=== PATIENT | female | born 1930 | race Caucasian/White ===

== ENCOUNTER 2017-12-21 15:55 | Inpatient (IN) ==
[2017-12-21] MEDS ORDERED: NS 1,000 ML IV ONE (16:05)
--- NOTE | 2017-12-21 16:30 | Emergency Department Report ---
General Adult HPI - General Chief complaint: Fever <TammyJacinto Q - 12/22/17 06:07> Stated complaint: Fever <Rashad Munozn Q - 12/22/17 06:07> Source: patient <Rosario Ayala - 12/21/17 16:37> Mode of arrival: EMS <Rosario Ayala - 12/21/17 16:37> Limitations: no limitations <Rosario Ayala - 12/21/17 16:37> - History of Present Illness HPI narrative: Patient brought in by EMS due to weakness today. She was unable to make it from the bathroom back to her chair so her daughter helped lower her to the floor and called EMS. Pt states today she has felt more fatigued and weak. Has been chilled, but states she always has chills. No cough or SOA. She take cephalexin 500mg daily the first 5 days of every month due to frequent uti's. On arrival to ER she has temp of 101.8 and is tachycardic. <Rosario Ayala - 12/22/17 02:18> - Related Data Home Medications Medication Instructions Recorded Confirmed Acetaminophen [Acetaminophen Extra 1,000 mg PO QID 12/21/17 12/21/17 Strength] Calcium Carbonate/Vitamin D3 1 tab PO DAILY 12/21/17 12/21/17 [Calcium 600-Vit D3 800 Caplet] Furosemide [Lasix 20 mg Tab] 20 mg PO DAILY 12/21/17 12/21/17 Insulin Detemir [Levemir] 7 unit SQ AMI 12/21/17 12/21/17 Labetalol [Normodyne] 100 mg PO BID 12/21/17 12/21/17 Mv-Mn/Folic Acid/Calcium/Vit K 1 tab PO DAILY 12/21/17 12/21/17 [Women's 50 Plus Daily Formula] NIFEdipine [Nifedipine ER] 90 mg PO DAILY 12/21/17 12/21/17 cephALEXin [Cephalexin] 500 mg PO DAILY 12/21/17 12/21/17 <Jacinto Munoz Q - 12/22/17 06:07> Allergies Allergy/AdvReac Type Severity Reaction Status Date / Time No Known Drug Allergies Allergy Unknown Verified 12/21/17 16:00 <Jacinto Munoz Q - 12/22/17 06:07> Review of Systems All systems: reviewed and negative except as stated (fever, weakness, chronic pedal edema, healing sore to LLL) <Rosario Ayala L - 12/21/17 19:48> [facility] Patient Stated Medical History Cerebrovascular Accident No Meningitis No Peripheral Neuropathy Yes Seizures No Cataracts Yes Cardiac Arrhythmia No Hypertension Yes Asthma No Chronic Obstructive Pulmonary No Disease (COPD) Pneumonia No Diabetes Mellitus Type 1 Yes Gastroesophageal Reflux No Disease Hiatal Hernia No Ulcer No Hx Kidney Stones No Hx Renal Disease Yes Other Yes: frequency;ckd Anemia Yes MRSA No Shingles No Clinic Medical History (Last Updated 12/21/17 @ 18:06 by SUZETTE Sood) Edema extremities (Chronic Medical) Anemia in CKD (chronic kidney disease) (Chronic Medical) Chronic kidney disease (Chronic Medical) stage IV - baseline SCr 2.7. Sees Dr. Ramsey. Type 2 diabetes mellitus (Chronic Medical) Hypertension (Chronic Medical) <Jacinto Munoz Q - 12/22/17 06:07> Patient Stated Medical History Cerebrovascular Accident No Meningitis No Peripheral Neuropathy Yes Seizures No Cataracts Yes Cardiac Arrhythmia No Hypertension Yes Asthma No Chronic Obstructive Pulmonary No Disease (COPD) Pneumonia No Diabetes Mellitus Type 1 Yes Gastroesophageal Reflux No Disease Hiatal Hernia No Ulcer No Hx Kidney Stones No Hx Renal Disease Yes Other Yes: frequency;ckd Anemia Yes MRSA No Shingles No Clinic Medical History (Last Reviewed 04/29/17 @ 10:38 by Hui Gudino [facility]) Edema extremities (Chronic Medical) Anemia in CKD (chronic kidney disease) (Chronic Medical) Chronic kidney disease (Chronic Medical) Type 2 diabetes mellitus (Chronic Medical) Hypertension (Chronic Medical) <Rosario Ayala - 12/21/17 16:37> Surgical History: 2007 Nilson placement Rt upper arm due to fracture. 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 <[facility] 12/21/17 16:37> Physical Exam - Limitations Limitations: no limitations <[facility] 12/21/17 16:37> - General General appearance: in no apparent distress <[facility] 12/21/17 16:37> - Normal Exams: Head:: Normocephalic without trauma <[facility] 12/21/17 16:37> Eyes:: Pupils are PERRLA w/ EOMI <[facility] 12/21/17 16:37> Neck:: Full range of motion, without adenopathy <Ayala,[facility] 12/21/17 16: 37> Chest/Respirations:: Clear all tyler <[facility] 12/21/17 16:37> Cardiovascular:: Regular rate and rhythm, capillary refill <[facility] 16:37> Abdomen:: Bowel sounds positive, soft, non-tender, non-distended, no hepatosplenomegaly <[facility] 12/21/17 16:37> Lymphatic:: No lymphadenopathy <[facility] 12/21/17 16:37> Neurological:: Patient is alert, and oriented, exams w/o gross deficits < [facility] 12/21/17 16:37> Psychiatric:: Patient exhibits, appropriate attention <[facility] 16:37> - Extremities Exam Extremities exam: Present: other (3+ pitting edema knees to feet. <4mm healing wound on L lateral lower leg. She has erythema and warmth to L lower leg. Minimal erythema to RLE r/t venous stasis changes. ) <[facility] 16:37> Course Vital Signs Temperature 101.8 F H 12/21/17 15:48 Pulse Rate 107 H 12/21/17 15:48 Respiratory Rate 20 12/21/17 15:48 Blood Pressure 146/63 H 07/02/18 15:48 Pulse Oximetry 97 12/21/17 15:48 Temperature 100.8 F H 12/22/17 05:29 Pulse Rate 108 H 12/22/17 03:52 Respiratory Rate 18 12/22/17 03:52 Blood Pressure 176/69 H 12/22/17 03:52 Pulse Oximetry 94 12/22/17 03:52 <Jacinto Munoz Q - 12/22/17 06:07> Vital Signs Temperature 101.8 F H 12/21/17 15:48 Pulse Rate 107 H 12/21/17 15:48 Respiratory Rate 20 12/21/17 15:48 Blood Pressure 146/63 H 12/21/17 15:48 Pulse Oximetry 97 12/21/17 15:48 Temperature 101.8 F H 12/21/17 15:48 Pulse Rate 107 H 12/21/17 15:48 Respiratory Rate 20 12/21/17 15:48 Blood Pressure 146/63 H 12/21/17 15:48 Pulse Oximetry 97 12/21/17 15:48 <Rosario Ayala - 12/21/17 16:37> Medical Decision Making - MDM Narrative Medical decision making narrative: SIRS - temp, tachy, leukocytosis. Nl lactate. Has CKD. Had recent blood transfusion. Gets Procrit. Diff Dx to include PNA, UTI, cellulitis. Admit to hospitalist. She was given Rocephin 1gm IV and 1 L NS in ER prior to admission. <Rosario Ayala - 12/22/17 02:18> - Lab Data Result diagrams: 12/22/17 04:52 12/22/17 04:52 <Jacinto Munoz Q - 12/22/17 06:07> Lab Results 12/21/17 12/21/17 Range/Units 16:17 16:17 WBC 25.9 H* (4.5-11.0) T/MM3 RBC 3.18 L (4.00-5.20) M/MM3 Hgb 9.7 L (12-16) GM/DL Hct 30.3 L (36-46) % MCV 95.3 (80-100) UM3 MCH 30.5 (26-34) UUG MCHC 32.0 (31-37) GM/DL RDW Std Deviation 44.8 (36.9-50.2) FL Plt Count 181 (130-400) T/MM3 MPV 10.6 (9.4-12.4) UM3 Immature Gran % (Auto) Not performed Neut % (Auto) Not performed Lymph % (Auto) Not performed [place] % (Auto) Not performed Eos % (Auto) Not performed Baso % (Auto) Not performed Neut # (Auto) Not performed Lymph # (Auto) Not performed [place] # (Auto) Not performed Eos # (Auto) Not performed Baso # (Auto) Not performed Abs Immat Gran (auto) Not performed Neutrophils % (Manual) 98.0 H (33-66) % Monocytes % (Manual) 2.0 (0-9.0) % Neutrophils # (Manual) 25.4 H (1.8-7.7) T/MM3 Monocytes # (Manual) 0.5 (0-0.8) T/MM3 RBC Morph Comment Normal Turbidity < 20 (0-20) Sodium 142 (136-146) MEQ/L Potassium 4.6 (3.6-5) MEQ/L Chloride 113 H (98-107) MEQ/L Carbon Dioxide 18 L (22-30) MEQ/L Anion Gap 11 (5-15) meq/L BUN 76.0 H* (7-17) MG/DL Creatinine 2.8 H (0.7-1.2) mg/dL GFR Calculation 16 BUN/Creatinine Ratio 27 H (6-26) RATIO Glucose 208 H (65-110) MG/DL Calculated Osmolality 302 H (261-280) MOSM/KG Calcium 8.6 (8.4-10.2) MG/DL Total Bilirubin 0.40 (0.20-1.30) MG/DL Icterus Index < 2 (0-7) AST 19 (14-36) U/L ALT 19 (1-35) U/L Alkaline Phosphatase 79 (38-126) U/L Total Protein 6.1 L (6.3-8.2) g/dL Albumin 3.3 L (3.5-5.0) g/dL Globulin 2.8 (2.4-3.6) G/DL Albumin/Globulin Ratio 1.2 (1.1-2.2) RATIO Plasma Lactate 1.1 (0.6-2.2) MMOL/L Specimen Hemolysis < 15 (0-25) <Rashad Munozn Q - 12/22/17 06:07> - EKG Data EKG #1 EKG attestation: Yes: I reviewed and interpreted this EKG. <Rashad Munozn Q - 12/22/17 06:07> Rate: normal <Rashad Munozn Q - 12/22/17 06:07> Rhythm: NSR <Rashad Munozn Q 12/22/17 06:07> [place]/QRS: right axis deviation, RBBB <Rashad Munozn Q - 12/22/17 06:07> Interpretation: no acute changes <Rashad Munozn Q - 12/22/17 06:07> Disposition Clinical Impression: Left lower lobe pneumonia <TammyJacinto Q 12/22/17 06:07> Disposition: 02 To [facility] Acute Care <Rashad Munozn Q 12/22/17 06:07> Condition: Stable <Rashad Munozn 12/22/17 06:07> Instructions: <Rashad Munozn Q - 12/22/17 06:07> Prescriptions: No Action Mv-Mn/Folic Acid/Calcium/Vit K [Women's 50 Plus Daily Formula] 1 tab PO DAILY Insulin Detemir [Levemir] 7 unit SQ AMI cephALEXin [Cephalexin] 500 mg PO DAILY NIFEdipine [Nifedipine ER] 90 mg PO DAILY Furosemide [Lasix 20 mg Tab] 20 mg PO DAILY Acetaminophen [Acetaminophen Extra Strength] 1,000 mg PO QID Calcium Carbonate/Vitamin D3 [Calcium 600-Vit D3 800 Caplet] 1 tab PO DAILY Labetalol [Normodyne] 100 mg PO BID <BeltramiJacinto Q - 12/22/17 06:07> Referrals: Gela Turcios APRN [Primary Care Provider] - <BeltramiJacinto parham Q - 12/22/17 06:07> Forms: <Rashad Munozn Q - 12/22/17 06:07> - Seen By: midlevel <Rosario Ayala - 12/22/17 02:18>
[2017-12-21] MEDS ORDERED: CEFTRIAXONE 1 G in NS 100 ML IV ONE (16:49)
--- NOTE | 2017-12-21 16:58 | XRay Report ---
INDICATION: fever PROCEDURE: CHEST 2-VIEWS UPRIGHT (PA & LAT) Encounter: Initial COMPARISON: December 05, 2016 FINDINGS: Hazy left lower lobe airspace opacities are new. Mild perihilar interstitial prominence on the right as well. No pneumothorax or pleural effusion. Heart size and mediastinal contours are stable. Degenerative change in the lower thoracic and upper lumbar spine. Impression: Left lower lobe atelectasis or pneumonia. .
--- NOTE | 2017-12-21 18:04 | History & Physical Report ---
History of Present Illness Date: 12/21/17 Chief complaint: sepsis, pneumonia, left lower leg cellulitis HPI: Brooklyn Gray is a pleasant 87-year-old female patient of Gela Turcios APRN who was brought in to [facility] ED today, 12/21/17, by her daughters for evaluation of increased fatigue and weakness. She reports increased fatigue and generalized weakness as well as chills since last evening that progressively got worse today. She denies any chest pain, shortness of breath, palpitations, fevers, abdominal pain, nausea, vomiting, dysuria or diarrhea. After ambulating to the bathroom with her walker, she didn't have the strength to walk back to her chair so her daughter assisted her to the floor and contacted EMS. She was brought to [facility] ED for further evaluation. Upon arrival, she was noted to be febrile (101.8) and tachycardic. Labs revealed leukocytosis (WBC 25.9) with anemia (hgb 9.7). She has known chronic kidney disease, stage IV and recently was seen by Dr. Ramsey, nephrology. Baseline SCr ~2.7. Lactate was 1.1. Chest x-ray revealed left lower lobe pneumonia vs. atelectasis. Due to her apparent sepsis secondary to pneumonia, Dr. Elmore was consulted and she was admitted into inpatient status for further evaluation, IV antibiotics and IV hydration. She was given Rocephin 1g IV with 1L NS prior to admission. Review of Systems All systems PM: 10-point ROS was reviewed, no additional remarkable complaints except - Constitutional Constitutional: Present: chills, fatigue, fever(s), lethargy, weakness - EEKYT Eyes: Absent: change in vision, diplopia, photophobia Ears: Absent: ear pain Balance: Absent: falling to one side Nose: Absent: nosebleeds Mouth/Throat: Absent: sore throat, changes in swallowing, dry mouth - Cardiovascular Cardiovascular: Absent: chest pain, palpitations, syncope, dyspnea on exertion, orthopnea, edema Rhythm: Present: regular rhythm Vascular: Present: pedal edema. Absent: pallor of an extermity, unilateral swelling - Respiratory Respiratory: Absent: cough, dyspnea, hemoptysis, dyspnea on exertion, wheezing, pain on inspiration - Gastrointestinal Gastrointestinal: Absent: abdominal pain, constipation, diarrhea, hematochezia, melena, nausea, vomiting - Genitourinary Genitourinary: Absent: dysuria, flank pain, hematuria Menstruation: post hysterectomy - Musculoskeletal Musculoskeletal: Present: abnormal gait (uses walker), muscle weakness. Absent : back pain, deformity - Integumentary/Breasts Integumentary: Present: erythema (left lower leg), wounds (posterior left lower leg). Absent: rash - Neurological Neurological: Present: weakness. Absent: confusion, dizziness, focal weakness - Psychiatric Psychiatric: Absent: depression - Endocrine Endocrine: Absent: heat intolerance, palpitations - Hematologic/Lymphatic Hematologic/Lymphatic: Absent: easy bruising - Allergic/Immunologic Allergic/Immunologic: Absent: seasonal rhinorrhea Past Medical History Medical History: Medical History (Last Updated 12/21/17 @ 18:06 by SUZETTE Sood) Edema extremities (Chronic) Anemia in CKD (chronic kidney disease) (Chronic) Chronic kidney disease (Chronic) stage IV - baseline SCr 2.7. Sees Dr. Ramsey. Type 2 diabetes mellitus (Chronic) Hypertension (Chronic) Surgical History: 2006-Nilson placement Rt upper arm due to fracture. Hysterectomy. Family History: Daughters are present on exam and are reportedly healthy. Family History: As Above - Social History Smoking status: Never smoker Substance use type: does not use Alcohol intake frequency: does not drink Housing: house Household members: family Current occupational status: retired Does patient use chewing tobacco?: No Current residence: Apartment/Private Home Social history: PCP - Gela Turcios APRN. Nephro - Dr. Ramsey. Medications Home Medications Medication Instructions Recorded Confirmed Type Acetaminophen [Acetaminophen Extra 1,000 mg PO QID 12/21/17 12/21/17 History Strength] Calcium Carbonate/Vitamin D3 1 tab PO DAILY 12/21/17 12/21/17 History [Calcium 600-Vit D3 800 Caplet] Furosemide [Lasix 20 mg Tab] 20 mg PO DAILY 12/21/17 12/21/17 History Insulin Detemir [Levemir] 7 unit SQ AMI 12/21/17 12/21/17 History Labetalol [Normodyne] 100 mg PO BID 12/21/17 12/21/17 History Mv-Mn/Folic Acid/Calcium/Vit K 1 tab PO DAILY 12/21/17 12/21/17 History [Women's 50 Plus Daily Formula] NIFEdipine [Nifedipine ER] 90 mg PO DAILY 12/21/17 12/21/17 History cephALEXin [Cephalexin] 500 mg PO DAILY 12/21/17 12/21/17 History Allergies Allergy/AdvReac Type Severity Reaction Status Date / Time No Known Drug Allergies Allergy Unknown Verified 12/21/17 16:00 Exam Vital Signs: Temperature 101.8 F H 12/21/17 15:48 Pulse Rate 95 12/21/17 17:30 Respiratory Rate 20 12/21/17 17:30 Blood Pressure 146/63 H 12/21/17 15:48 Pulse Oximetry 98 12/21/17 17:30 Telemetry Rhythm: Sinus Rhythm Height/Weight/BMI: Height 5 ft 6 in Weight 188 lb 14.978 oz Comments: Patient is seen while resting in the ED with daughters at the bedside. Baseline weight reportedly 180 lbs. - Constitutional Present: no acute distress, well nourished, well developed, cooperative - Routine HEENT Exam Head: Present: normocephalic, atraumatic Eye: Present: PERRL. Absent: conjunctival icterus ENT: Present: mucous membranes moist, oropharynx clear - Routine Neck Exam Present: supple, full ROM, trachea midline - Routine Chest/Breast/Axilla Exam Chest wall: Absent: pacemaker - Routine Respiratory Exam Present: CTA bilaterally. Absent: respiratory distress, wheezes Comments: No cough or conversational dyspnea. - Routine Cardiovascular Exam Present: RRR, S1, S2 - Routine Abdominal Exam Present: soft, normoactive bowel sounds, non distended, non tender - Routine Extremities Exam Present: edema (3+ pitting edema bilaterally), pulses intact Comments: Oozing wound with bandage in place noted to left posterior calf. Increased erythema and warmth noted to left samaniego and calf concerning for cellulitis. - Routine Skin Exam Present: dry, warm Comments: Febrile. - Routine Neurological Exam Present: alert, oriented X3, moving all extremities, hearing grossly intact, normal speech - Routine Psychiatric Exam Present: normal affect, normal thought process, cooperative Results - Labs CBC & Chem 7: 12/21/17 16:17 12/21/17 16:17 Microbiology Results: Microbiology 12/21/17 16:17 Peripheral/Iv Start Blood Culture - Preliminary Culture Initiated - Results Pending 12/21/17 16:20 Peripheral/Iv Start Blood Culture - Preliminary Culture Initiated - Results Pending Assessment and Plan Assessment and Plan: Assessment: Sepsis as indicated by leukocytosis, tachycardia, fever. Left lower lobe pneumonia, POA. Left lower extremity cellulitis with open wound, acute. Chronic kidney disease, stage IV - baseline SCr 2.7 - sees Dr. Ramsey. Hypertension. Diabetes mellitus, type 2 insulin dependent. Chronic anemia with iron deficiency - recent iron transfusion. Bilateral peripheral edema - baseline weight 180 lbs. Plan - 12/21/17 Admit to inpatient status under the care of Dr. Elmore for sepsis secondary to pneumonia. Cellulitis with open wound noted to left posterior leg. Will consult wound care for treatment recommendations. Rocephin 1g IV was given in ED for empiric treatment of both pneumonia and cellulitis. Will continue Rocephin 1g IV daily. Blood cultures pending. Initial lactate 1.1. Will monitor serial lactates. Continue home medications. Monitor closely on telemetry. Oxygen as needed to maintain SAO2 >90%. Does not use oxygen at home. Family requested gentle fluid resuscitation given chronic renal disease and risk for edema. 1L NS given in ED. Monitor weight closely. Base line weight 180 lbs. Awaiting urine for further evaluation of possible UTI per family concern. Patient denies dysuria or urinary symptoms but has history of UTI and takes Keflex once daily for suppression therapy. Monitor blood pressure closely. Monitor blood sugars closely. BGMs and sliding scale insulin. Recheck labs in AM to monitor blood counts, electrolytes and renal function. Upon discharge, patient's care will be returned to her PCP, Gela Turcios APRN. DVT Prophylaxis: SCD's, BAUDILIO Hose - Time spent with patient Time with patient PN: 70 minutes - Physician Narrative Physician: Prosper Elmore MD Narrative: Date: 12/21/17 Time: 1934 Have independently interviewed and examined pt. Chart reviewed. Case discussed with ED provider, family, and my PA. Care plan developed with my supervision; agree with above. Presents to ED secondary to weakness-harder to get around, legs not feeling as strong. Typically active at home-lives independently with family member. Appetite with slight decreased. No n/v. Bowel variable. Not having urinary pain. Breathing feels okay, but did having increasing cough/congestion this am. Evaluated in ED. Temp elevated. WBC with marked elevation. CXR showing infiltrate. Admitted to [facility] for treatment of sepsis syndrome secondary to pneumonia. Lungs: decreased, upper airway noises. CV: regular AB: soft nt BS decreased EXT: +3 BLE MSE: awake alert appropriate Plan: Inpatient admission. IV ceftriaxone and azithromycin for pulmonary coverage. Will continue with IVF of 1/2NS, rate decrease to 50cc/hr to avoid volume overload. PT/OT to help functional status. Hold antihypertensive until we are sure BP not decreased. Monitor lab. Care to return to PCP at time of discharge from [facility]. Sepsis Assessment - Evaluation SIRS Criteria: temperature > 100.9, pulse > 90 beats/minute, WBC > 12,000, RR > 20 Hospital Course Summary Disclaimer: The visit summary below is not to be considered part of the above Progress Note. Hospital Course: 12/21/17 Admit to inpatient status under the care of Dr. Elmore for sepsis secondary to pneumonia. Cellulitis with open wound noted to left posterior leg. Will consult wound care for treatment recommendations. Rocephin 1g IV was given in ED for empiric treatment of both pneumonia and cellulitis. Will continue Rocephin 1g IV daily. Blood cultures pending. Initial lactate 1.1. Will monitor serial lactates. Continue home medications. Monitor closely on telemetry. Oxygen as needed to maintain SAO2 >90%. Does not use oxygen at home. Family requested gentle fluid resuscitation given chronic renal disease and risk for edema. 1L NS given in ED. Monitor weight closely. Base line weight 180 lbs. Awaiting urine for further evaluation of possible UTI per family concern. Patient denies dysuria or urinary symptoms but has history of UTI and takes Keflex once daily for suppression therapy. Monitor blood pressure closely. Monitor blood sugars closely. BGMs and sliding scale insulin. Recheck labs in AM to monitor blood counts, electrolytes and renal function. Upon discharge, patient's care will be returned to her PCP, Gela Turcios APRN.
[2017-12-21] MEDS ORDERED: 1/2 NS 1,000 ML IV SCH ×2 (18:22→19:45)
[2017-12-21] MEDS ORDERED: AZITHROMYCIN IV 500 MG in NS 250ml 250 ML IV SCH (18:22)
[2017-12-21] MEDS ORDERED: GLUCOSE ORAL GEL 40% 37.5gm PO PRN (18:29)
[2017-12-21] MEDS ORDERED: ACETAMINOPHEN 500 MG TABLET PO SCH (21:00)
[2017-12-21] MEDS: LABETALOL 100 MG TABLET PO SCH (22:03)
[2017-12-21] MEDS: INSULIN ASPART 100unit/ml INJECTION SQ PRN (22:51)
[2017-12-22] MEDS: ACETAMINOPHEN 500 MG TABLET PO PRN ×3 (04:27→20:17)
[2017-12-22] MEDS: INSULIN DETEMIR 100unit/ml INJECTION SQ SCH (07:15)
[2017-12-22] MEDS: INSULIN ASPART 100unit/ml INJECTION SQ PRN ×3 (07:16→22:16)
[2017-12-22] MEDS: LABETALOL 100 MG TABLET PO SCH ×2 (08:36→20:17)
[2017-12-22] MEDS: MULTI-VITAMIN + MINERAL TABLET PO SCH (08:36)
[2017-12-22] MEDS: CALCIUM 500 + VIT D 200 TABLET PO SCH (08:36)
[2017-12-22] MEDS ORDERED: FOLIC ACID PO SCH (09:00)
[2017-12-22] MEDS ORDERED: MV MN PO SCH (09:00)
[2017-12-22] MEDS ORDERED: VIT K PO SCH (09:00)
[2017-12-22] MEDS ORDERED: NON-FORMULARY MEDICATION 1 EACH EACH (Calcium Carbonate/Vitamin D3 [Calcium 600-Vit D3 800 PO SCH (09:00)
[2017-12-22] MEDS ORDERED: CALCIUM PO SCH (09:00)
[2017-12-22] MEDS ORDERED: [UNRECOGNIZED DRUG - OTHER] PO SCH (09:00)
--- NOTE | 2017-12-22 09:29 | Progress Note ---
- Date 12/22/17 Subjective: F/U: Sepsis, Left lower lobe pneumonia Doing okay this am. Notes minor cough this morning (poss secondary to nasal drainage) but little chest congestion and no SOA. No pain with breathing. Denies nausea or ab pain. Eating well. Did have temp elevation overnight. Objective Vital signs: Temperature 99.9 F 12/22/17 07:55 Pulse Rate 110 H 12/22/17 07:55 Respiratory Rate 20 12/22/17 07:55 Blood Pressure 159/77 H 12/22/17 07:55 Pulse Oximetry 94 12/22/17 07:55 Height/Weight/BMI: Height 1.68 m Weight 83.6 kg Body Mass Index 29.3 - Constitutional Present: well nourished, well developed, average body habitus, cooperative. Absent: combative, agitated, somnolent, obtunded - Routine HEENT Exam Head: Present: normocephalic, atraumatic Eye: Present: EOMI, PERRL, normal accommodation ENT: Present: mucous membranes moist - Routine Respiratory Exam Present: decreased breath sounds. Absent: respiratory distress, distant breath sounds, diminished air movement - Routine Cardiovascular Exam Present: RRR, no murmur - Routine Abdominal Exam Present: soft, normoactive bowel sounds, non distended, non tender. Absent: guarding - Routine Extremities Exam Present: edema (+3 BLE). Absent: cyanosis, clubbing - Routine Musculoskeletal Exam Musculoskeletal: Present: no clubbing or cyanosis, normal strength - Routine Skin Exam Present: dry, warm - Routine Neurological Exam Present: alert, oriented X3, CN II-XII intact, moving all extremities, vision grossly intact, hearing grossly intact, normal speech. Absent: motor deficit, altered mental status - Routine Psychiatric Exam Present: normal affect, normal thought process, cooperative Results - Labs CBC & Chem 7: 12/22/17 04:52 12/22/17 04:52 Assessment and Plan Assessment and Plan: Assessment Sepsis as indicated by leukocytosis, tachycardia, fever. Left lower lobe pneumonia, POA. Left lower extremity cellulitis with open wound, acute. Leukocytosis Chronic kidney disease, stage IV - baseline SCr 2.7 - sees Dr. Ramsey. Hypertension. Diabetes mellitus, type 2 insulin dependent. Chronic anemia with iron deficiency - recent iron transfusion. Bilateral peripheral edema - baseline weight 180 lbs. Plan Continue with ceftriaxone and azithromycin for antimicrobial coverage. Discontinue IVF as oral drive stable. Will restart nifedipine as blood pressure elevated, will restart furosemide tomorrow. PT/OT to help improve functional status. Recheck CBC in am secondary to leukocytosis. Will recheck BMP in am due to CKD and medications. Case discussed with family. Time spent with patient care 25 minutes. DVT Prophylaxis: SCD's - Time spent with patient Time with patient PN: 25 minutes - Physician Narrative Physician: Prosper Elmore MD Narrative: Date: 12/22/17 Time: 925 Hospital Course Summary Disclaimer: The visit summary below is not to be considered part of the above Progress Note. Hospital Course: 12/21/17 Admit to inpatient status under the care of Dr. Elmore for sepsis secondary to pneumonia. Cellulitis with open wound noted to left posterior leg. Will consult wound care for treatment recommendations. Rocephin 1g IV was given in ED for empiric treatment of both pneumonia and cellulitis. Will continue Rocephin 1g IV daily. Blood cultures pending. Initial lactate 1.1. Will monitor serial lactates. Continue home medications. Monitor closely on telemetry. Oxygen as needed to maintain SAO2 >90%. Does not use oxygen at home. Family requested gentle fluid resuscitation given chronic renal disease and risk for edema. 1L NS given in ED. Monitor weight closely. Base line weight 180 lbs. Awaiting urine for further evaluation of possible UTI per family concern. Patient denies dysuria or urinary symptoms but has history of UTI and takes Keflex once daily for suppression therapy. Monitor blood pressure closely. Monitor blood sugars closely. BGMs and sliding scale insulin. Recheck labs in AM to monitor blood counts, electrolytes and renal function. Upon discharge, patient's care will be returned to her PCP, Gela Turcios, JOE. 12/22/17 Continue with ceftriaxone and azithromycin for antimicrobial coverage. Discontinue IVF as oral drive stable. Will restart nifedipine as blood pressure elevated, will restart furosemide tomorrow. PT/OT to help improve functional status.
[2017-12-22] MEDS ORDERED: VANCOMYCIN - PHARMACY CONSULT MC ONE (10:56)
--- NOTE | 2017-12-22 12:56 | Pharmacy Consult-Antibiotics ---
Pharmacy Consult-Vancomycin - Laboratory Information WBC 21.9 T/MM3 (4.5-11.0) H 12/22/17 04:52 BUN 72.0 MG/DL (7-17) H* 12/22/17 04:52 Creatinine 2.9 mg/dL (0.7-1.2) H 12/22/17 04:52 - Consult Information VANCOMYCIN CONSULT: Dx: Sepsis, Pneumonis PU is an 87-year-old female patient of Gela Turcios APRN who was brought in to [facility] today, 12/21/17, by her daughters for evaluation of increased fatigue and weakness. Upon arrival, she was noted to be febrile (101.8) and tachycardic. Labs revealed leukocytosis (WBC 25.9) with anemia (hgb 9.7). She has known chronic kidney disease, stage IV and recently was seen by Dr. Ramsey, nephrology. SIRS Criteria: temperature > 100.9, pulse > 90 beats/minute, WBC > 12,000, RR > 20. Due to her renal function I will bolus with Vancomycin 2,000 mg then will continue Vancomycin 1,250 mg iv every 48 hours starting 12/24 1200. I am ordering creatinine monitoring and a Vancomycin trough. Michael Corrigan, Pharmacist.
[2017-12-22] MEDS ORDERED: PNEUMOCOCCAL 13 VACCINE 0.5ml INJECTION IM ONE (13:48)
[2017-12-22] MEDS: CALCIUM CARBONATE Chewable 500mg TABLET PO PRN ×2 (14:35→22:07)
[2017-12-22] MEDS: NOZIN NASAL SWAB NAS SCH ×2 (14:36→22:08)
--- NOTE | 2017-12-22 14:40 | Wound Care Progress Note ---
Wound Center Progress Note: Pt seen for wound consult r/t wound on L lateral lower leg. Pt resting in chair , moved to bed with the aid of her daughter. No complaints of pain. Pt has chronic lower leg edema. Pt has had wound on L lateral lower leg for about a week. Daughter believes it started as a skin tear. L lateral lower leg wound: small crusted area, no active drainage. Periwound: edema 2 +, erythema, and warm to the touch. Wound tx plan: Cover with Mepilex border for protection, change q 3 days and PRN.
--- NOTE | 2017-12-22 14:43 | Wound Care Progress Note ---
Wound Management - Patient Status Premedicated Prior to Dressing Change: No - Wound Left Lateral Calf Wound Type: Abrasion Wound Present on Admission?: Yes Length: 0.3 Width: 0.2 Depth: 0.1 Layla Wound Appearance: Bluejacket Tunneling: No Undermining: No Drainage Amount: None Drainage Odor: No Odor Dressing Status: Changed Dressing Change Date: 12/22/17 Dressing Change Time: 13:00 Dressing Change Patient Tolerance: Tolerated Well (Crusted area. Cover with Mepilex, change q 3 days and PRN.)
[2017-12-22] MEDS: CEFTRIAXONE 1 G in NS 100 ML IV SCH (16:28)
[2017-12-22 17:34] VITALS: BMI 29.5
[2017-12-23] MEDS: LABETALOL 100 MG TABLET PO SCH ×3 (04:52→20:39)
[2017-12-23] MEDS: NOZIN NASAL SWAB NAS SCH ×4 (06:15→23:18)
[2017-12-23] MEDS: ACETAMINOPHEN 500 MG TABLET PO PRN ×4 (06:17→23:24)
[2017-12-23] MEDS: INSULIN ASPART 100unit/ml INJECTION SQ PRN ×4 (06:32→20:40)
[2017-12-23] MEDS: MULTI-VITAMIN + MINERAL TABLET PO SCH (08:14)
[2017-12-23] MEDS: FUROSEMIDE 20 MG TABLET PO SCH (08:14)
[2017-12-23] MEDS: INSULIN DETEMIR 100unit/ml INJECTION SQ SCH (08:15)
[2017-12-23] MEDS: CALCIUM 500 + VIT D 200 TABLET PO SCH (08:16)
--- NOTE | 2017-12-23 10:46 | Progress Note ---
- Date 12/23/17 Subjective: [place] c/o feeling weak in general but otherwise is doing fairly well. She has a chronic cough which is unchanged in character. There is no sputum production. She denies feeling short of breath or having any chest or pleuritic pain. She denies abdominal pain or GI c/o. Her daughter believes that the redness to her LLE has improved slightly. Objective Vital signs: Temperature 99.4 F 12/23/17 07:34 Pulse Rate 92 12/23/17 07:34 Respiratory Rate 18 12/23/17 07:34 Blood Pressure 176/72 H 12/23/17 07:34 Pulse Oximetry 93 12/23/17 07:34 Height/Weight/BMI: Height 1.68 m Weight 83 kg Body Mass Index 29.5 - Constitutional Present: no acute distress, well nourished, well developed - Routine HEENT Exam Head: Present: normocephalic Eye: Present: PERRL. Absent: conjunctival icterus, scleral injection ENT: Present: mucous membranes moist, oropharynx clear - Routine Respiratory Exam Present: decreased breath sounds (bases), rales (b/l bases) - Routine Cardiovascular Exam Present: irregular rhythm - Routine Abdominal Exam Present: soft, normoactive bowel sounds, non distended, non tender - Routine Extremities Exam Present: edema (2-3+ b/l) - Routine Skin Exam Present: dry, warm Comments: minimal erythema to LLE Healing abrasion/skin tear - Routine Neurological Exam Present: alert, CN II-XII intact, moving all extremities, normal speech - Routine Psychiatric Exam Present: normal affect, normal thought process, cooperative Results - Labs CBC & Chem 7: 12/23/17 04:13 12/23/17 04:13 Microbiology Results: Microbiology 12/23/17 04:13 Peripheral/Iv Start Blood Culture - Preliminary Culture Initiated - Results Pending 12/23/17 04:14 Peripheral/Iv Start Blood Culture - Preliminary Culture Initiated - Results Pending Assessment and Plan Assessment and Plan: Assessment Staph bacteremia - Suspect MRSA Sepsis as indicated by leukocytosis, tachycardia, fever. Left lower lobe pneumonia, POA. Left lower extremity cellulitis with open wound, acute. Leukocytosis Chronic kidney disease, stage IV - baseline SCr 2.7 - sees Dr. Ramsey. Hypertension. Diabetes mellitus, type 2 insulin dependent. Chronic anemia with iron deficiency - recent iron transfusion. Bilateral peripheral edema - baseline weight 180 lbs. Plan Antibiotics changed yesterday with pos BC with staph (95% likelihood MRSA). Zithromax dc'd. Vanco started per pharm protocol. Cont Rocephin for pulm. WBC increased slightly to 23.2. BC repeated this am. BP elevated - nifedipine resumed yesterday. Furosemide started this am. Renal function approaching baseline - BUN 69, cr 2.8 HR irregular on exam - repeat EKG. D/W Dr. Elmore, family. Code status D/W patient and daughter Oralia (her DPOA) - at this time she requests full resuscitation. In addition, she is not opposed to dialysis -- daughter asked to hold off on PICC line until we check with Dr. Ramsey. DVT Prophylaxis: SCD's Resuscitation Status: Full Code - Time spent with patient Time with patient PN: 25 minutes - Physician Narrative Physician: Prosper Elmore MD Narrative: Date: 12/23/17 Time: 0 Have independently interviewed and examined pt. Chart reviewed. Case discussed with my FRUIT LOADER MACHINE OPERATOR. Care plan developed with my supervision; agree with above. Tired today-napping often this afternoon. Breathing stable. No f/c. Appetite fair. No nausea or ab pain. Lungs: decreased bilaterally, no distress CV: regular AB: soft nt/nd MSE: awake alert appropriate Plan: Continue with Vanco and ceftriaxone for coverage. Continue wound care. WBC with slight decreased-continue to monitor. Check on repeat BC. Hospital Course Summary Disclaimer: The visit summary below is not to be considered part of the above Progress Note. Hospital Course: 12/21/17 Admit to inpatient status under the care of Dr. Elmore for sepsis secondary to pneumonia. Cellulitis with open wound noted to left posterior leg. Will consult wound care for treatment recommendations. Rocephin 1g IV was given in ED for empiric treatment of both pneumonia and cellulitis. Will continue Rocephin 1g IV daily. Blood cultures pending. Initial lactate 1.1. Continue home medications. Monitor closely on telemetry. Oxygen as needed to maintain SAO2 >90%. Does not use oxygen at home. Family requested gentle fluid resuscitation given chronic renal disease and risk for edema. 1L NS given in ED. Monitor weight closely. Base line weight 180 lbs. Awaiting urine for further evaluation of possible UTI per family concern. Patient denies dysuria or urinary symptoms but has history of UTI and takes Keflex once daily for suppression therapy. Upon discharge, patient's care will be returned to her PCP, Gela Turcios APRN. 12/22/17 Continue with ceftriaxone and azithromycin for antimicrobial coverage. Discontinue IVF as oral drive stable. Will restart nifedipine as blood pressure elevated, will restart furosemide tomorrow. PT/OT to help improve functional status. 12/23/17 Antibiotics changed yesterday with pos BC with staph (95% likelihood MRSA). Zithromax dc'd. Vanco started per pharm protocol. Cont Rocephin for pulm. WBC increased slightly to 23.2. Repeated BC this am. BP elevated - nifedipine resumed yesterday. Furosemide started this am. Renal function approaching baseline - BUN 69, cr 2.8 Code status D/W patient and daughter Oralia (her DPOA) - at this time she requests full resuscitation. In addition, she is not opposed to dialysis -- daughter asked to hold off on PICC line until we check with Dr. Ramsey.
[2017-12-23] MEDS: CEFTRIAXONE 1 G in NS 100 ML IV SCH (15:24)
[2017-12-24] MEDS: NOZIN NASAL SWAB NAS SCH ×3 (06:24→21:53)
[2017-12-24] MEDS: ACETAMINOPHEN 500 MG TABLET PO PRN ×4 (06:24→23:59)
[2017-12-24] MEDS: INSULIN ASPART 100unit/ml INJECTION SQ PRN ×4 (06:34→23:04)
[2017-12-24] MEDS: INSULIN DETEMIR 100unit/ml INJECTION SQ SCH (07:46)
[2017-12-24] MEDS: CALCIUM CARBONATE Chewable 500mg TABLET PO PRN (08:21)
[2017-12-24] MEDS: FUROSEMIDE 20 MG TABLET PO SCH (08:21)
[2017-12-24] MEDS: MULTI-VITAMIN + MINERAL TABLET PO SCH (08:21)
[2017-12-24] MEDS: LABETALOL 100 MG TABLET PO SCH ×2 (08:21→21:52)
[2017-12-24] MEDS: CALCIUM 500 + VIT D 200 TABLET PO SCH (10:27)
[2017-12-24] MEDS ORDERED: ONDANSETRON 4 MG/2 ML INJECTION IVP PRN (11:00)
[2017-12-24] MEDS: RANITIDINE 150 MG TABLET PO SCH ×2 (12:07→21:53)
--- NOTE | 2017-12-24 14:22 | Pharmacy Consult-Antibiotics ---
Pharmacy Consult-Vancomycin - Laboratory Information WBC 21.8 T/MM3 (4.5-11.0) H 12/24/17 05:20 BUN 71.0 MG/DL (7-17) H* 12/24/17 05:20 Creatinine 2.8 mg/dL (0.7-1.2) H 12/24/17 05:20 Vancomycin Trough 11.49 ug/mL (15-20) L 12/24/17 12:13 - Consult Information VANCOMYCIN CONSULT: Vancomycin Trough = 11.49 mcg/ml. Today's SCr = 2.8 mg/dl. Will give Vancomycin 1,250mg IV q36hrs. Will continue to monitor and make adjustments accordingly. Thank you.
--- NOTE | 2017-12-24 15:46 | Progress Note ---
- Date 12/24/17 Subjective: F/U: Staph bacteremia with MRSA, Sepsis, Pneumonia, Left lower extremity cellulitis Feels rough-tired and weak. Not feeling like she is improving. Not having her usual 'get up and go.' Little appetite. No nausea, but some slight ab discomfort. Stools stable. Urine stable. Breathing at baseline-not feeling increased SOA or cough/congestion. Objective Vital signs: Temperature 96.9 F 12/24/17 15:24 Pulse Rate 99 12/24/17 15:24 Respiratory Rate 16 12/24/17 15:24 Blood Pressure 140/65 H 12/24/17 15:24 Pulse Oximetry 92 12/24/17 15:24 Height/Weight/BMI: Height 1.68 m Weight 84.1 kg Body Mass Index 29.5 - Constitutional Present: well nourished, average body habitus, cooperative, other (Appears tired ) - Routine HEENT Exam Head: Present: normocephalic, atraumatic Eye: Present: EOMI, PERRL, normal accommodation ENT: Present: mucous membranes moist - Routine Respiratory Exam Present: decreased breath sounds. Absent: rales, respiratory distress, wheezes , crackles - Routine Cardiovascular Exam Present: RRR, no murmur - Routine Abdominal Exam Present: soft, non distended, non tender. Absent: normoactive bowel sounds ( Slight decrease), guarding - Routine Extremities Exam Present: edema (+2 BLE). Absent: cyanosis, clubbing Comments: SCD in place - Routine Skin Exam Present: dry, warm - Routine Neurological Exam Present: alert, oriented X3, CN II-XII intact, moving all extremities, vision grossly intact, hearing grossly intact, normal speech. Absent: motor deficit, altered mental status - Routine Psychiatric Exam Present: normal affect, normal thought process, cooperative Comments: Appears 'down.' Results - Labs CBC & Chem 7: 12/24/17 05:20 12/24/17 05:20 Microbiology Results: Microbiology 12/23/17 04:13 Peripheral/Iv Start Blood Culture - Preliminary No Growth After 1 Day 12/23/17 04:14 Peripheral/Iv Start Blood Culture - Preliminary No Growth After 1 Day Assessment and Plan Assessment and Plan: Assessment Staph bacteremia - MRSA Sepsis as indicated by leukocytosis, tachycardia, fever. Left lower lobe pneumonia, POA. Left lower extremity cellulitis with open wound, acute. Leukocytosis Chronic kidney disease, stage IV - baseline SCr 2.7 - sees Dr. Ramsey. Hypertension. Diabetes mellitus, type 2 insulin dependent. Chronic anemia with iron deficiency - recent iron transfusion. Bilateral peripheral edema - baseline weight 180 lbs. Plan Continue with Vancomycin for MRSA coverage. Will stop ceftriaxone and initiate doxycycline for coverage as WBC slow to decrease. Initiate Culturelle 1 to TIDWM to help bowel function. Sugars with elevations - needing ISS. Will increase Levemir from 7 to 8 units. Encourage oral intake and activities to help strength. Will recheck CXR in am to f/u on infiltrate. Repeat BMP and CBC in am. Case discussed with family. Time spent with patient care 35 minutes. DVT Prophylaxis: SCD's GI Prophylaxis: Rantidine Resuscitation Status: Full Code - Time spent with patient Time with patient PN: 35 minutes - Physician Narrative Physician: Prosper Elmore MD Narrative: Date: 12/24/17 Time: [id number] Hospital Course Summary Disclaimer: The visit summary below is not to be considered part of the above Progress Note. Hospital Course: 12/21/17 Admit to inpatient status under the care of Dr. Elmore for sepsis secondary to pneumonia. Cellulitis with open wound noted to left posterior leg. Will consult wound care for treatment recommendations. Rocephin 1g IV was given in ED for empiric treatment of both pneumonia and cellulitis. Will continue Rocephin 1g IV daily. Blood cultures pending. Initial lactate 1.1. Continue home medications. Monitor closely on telemetry. Oxygen as needed to maintain SAO2 >90%. Does not use oxygen at home. Family requested gentle fluid resuscitation given chronic renal disease and risk for edema. 1L NS given in ED. Monitor weight closely. Base line weight 180 lbs. Awaiting urine for further evaluation of possible UTI per family concern. Patient denies dysuria or urinary symptoms but has history of UTI and takes Keflex once daily for suppression therapy. Upon discharge, patient's care will be returned to her PCP, Gela Turcios, JOE. 12/22/17 Continue with ceftriaxone and azithromycin for antimicrobial coverage. Discontinue IVF as oral drive stable. Will restart nifedipine as blood pressure elevated, will restart furosemide tomorrow. PT/OT to help improve functional status. 12/23/17 Antibiotics changed yesterday with pos BC with staph (95% likelihood MRSA). Zithromax dc'd. Vanco started per pharm protocol. Cont Rocephin for pulm. WBC increased slightly to 23.2. Repeated BC this am. BP elevated - nifedipine resumed yesterday. Furosemide started this am. Renal function approaching baseline - BUN 69, cr 2.8 Code status D/W patient and daughter Oralia (her DPOA) - at this time she requests full resuscitation. In addition, she is not opposed to dialysis -- daughter asked to hold off on PICC line until we check with Dr. Ramsey. 12/24/17 Continue with Vancomycin for MRSA coverage. Will stop ceftriaxone and initiate doxycycline for coverage as WBC slow to decrease. Initiate Culturelle 1 to TIDWM to help bowel function. Sugars with elevations - needing ISS. Will increase Levemir from 7 to 8 units. Encourage oral intake and activities to help strength. Will recheck CXR in am to f/u on infiltrate.
[2017-12-24] MEDS: LACTOBACILLUS (15B cfu) CAPSULE PO SCH (18:50)
[2017-12-24] MEDS: SALINE FLUSH 10ml SYRINGE IVF PRN (21:52)
[2017-12-24] MEDS: DOXYCYCLINE 100 MG in NS 250ml 250 ML IV SCH (21:53)
[2017-12-25] MEDS: NOZIN NASAL SWAB NAS SCH ×3 (06:49→22:00)
[2017-12-25] MEDS: INSULIN ASPART 100unit/ml INJECTION SQ PRN ×2 (06:57→21:11)
[2017-12-25] MEDS ORDERED: INSULIN DETEMIR 100unit/ml INJECTION SQ SCH (07:30)
--- NOTE | 2017-12-25 08:26 | XRay Report ---
INDICATION: F/U infiltrate PROCEDURE: CHEST 2-VIEWS UPRIGHT (PA & LAT) Encounter: Initial COMPARISON: December 21, 2017 FINDINGS: Persistent left lower lobe airspace opacity with a small amount of airspace disease in the right lower lobe. Small pleural effusions are new. Upper lung tyler are clear. No pneumothorax. Heart size and mediastinal contours are stable. Pulmonary vascularity is more prominent. Impression: Persistent lower lobe infiltrates with new mild edema. .
[2017-12-25] MEDS: FUROSEMIDE 20 MG TABLET PO SCH (09:55)
[2017-12-25] MEDS: RANITIDINE 150 MG TABLET PO SCH ×2 (09:55→21:13)
[2017-12-25] MEDS: MULTI-VITAMIN + MINERAL TABLET PO SCH (09:55)
[2017-12-25] MEDS: LACTOBACILLUS (15B cfu) CAPSULE PO SCH ×3 (09:55→18:22)
[2017-12-25] MEDS: CALCIUM 500 + VIT D 200 TABLET PO SCH (09:55)
[2017-12-25] MEDS: LABETALOL 100 MG TABLET PO SCH ×2 (09:56→21:12)
[2017-12-25] MEDS: DOXYCYCLINE 100 MG in NS 250ml 250 ML IV SCH ×2 (09:56→21:10)
[2017-12-25] MEDS ORDERED: FUROSEMIDE 20 MG/2 ML INJECTION IVP ONE (13:27)
--- NOTE | 2017-12-25 13:31 | Progress Note ---
- Date 12/25/17 Subjective: [place] was visibly short of breath and exhibited conversational dyspnea. She went for a walk earlier and became short of breath. She still c/o wheezing. She denies feeling weak. She denies n/v and ate about half of her lunch. She has chronic leg swelling. Objective Vital signs: Temperature 96.8 F 12/25/17 08:00 Pulse Rate 105 H 12/25/17 08:00 Respiratory Rate 16 12/25/17 08:00 Blood Pressure 168/89 H 12/25/17 08:00 Pulse Oximetry 94 12/25/17 08:00 Height/Weight/BMI: Height 1.68 m Weight 84.5 kg Body Mass Index 29.5 - Constitutional Present: mild distress, well nourished, well developed - Routine HEENT Exam Head: Present: normocephalic Eye: Absent: conjunctival icterus, scleral injection - Routine Respiratory Exam Present: accessory muscle use, decreased breath sounds, wheezes - Routine Cardiovascular Exam Present: RRR, S1, S2 - Routine Abdominal Exam Present: soft, normoactive bowel sounds, non tender - Routine Extremities Exam Present: edema (3+ BLE) - Routine Skin Exam Present: intact, dry, warm - Routine Neurological Exam Present: alert, oriented X3, moving all extremities, normal speech - Routine Psychiatric Exam Present: normal affect, normal thought process, cooperative Results - Labs CBC & Chem 7: 12/25/17 04:57 12/25/17 04:57 Microbiology Results: Microbiology 12/23/17 04:14 Peripheral/Iv Start Blood Culture - Preliminary No Growth After 2 Days 12/23/17 04:13 Peripheral/Iv Start Blood Culture - Preliminary No Growth After 2 Days Assessment and Plan (1) MRSA bacteremia Current visit: Yes Status: Acute Assessment and Plan: Assessment Staph bacteremia - MRSA Sepsis as indicated by leukocytosis, tachycardia, fever. Left lower lobe pneumonia, POA. Left lower extremity cellulitis with open wound, acute. Leukocytosis Chronic kidney disease, stage IV - baseline SCr 2.7 - sees Dr. Ramsey. Hypertension. Diabetes mellitus, type 2 insulin dependent. Chronic anemia with iron deficiency - recent iron transfusion. Bilateral peripheral edema - baseline weight 180 lbs. Plan WBC still elevated at 21.3 and had fever of 101.3 last night. Abx were adjusted yesterday; Rocephin dc'd and doxy started. Continues on vanc for MRSA bacteremia. Check procalcitonin on blood in lab and again in am. Weight trending up ~2 kg. CXR reviewed - mild pulmonary edema, along with conversational dyspnea and wheezing -- will give IV Lasix 20 mg x1. Renal status steady with BUN 71, cr 2.9. D/w Dr. Blas, button sewing machine operator for Dr. Ramsey -- usually EJ or IJ is preferable to PICC if longer-term IV abx are needed. Fasting BGM was 222 this am -- increase Levemir to 10U. Continue SSI. DVT Prophylaxis: SCD's GI Prophylaxis: Rantidine Resuscitation Status: Full Code - Time spent with patient Time with patient PN: 25 minutes - Physician Narrative Physician: Prosper Elmore MD Narrative: Date: 12/25/17 Time: 1326 Have independently interviewed and examined pt. Chart reviewed. Case discussed with my WINDOWS DEPLOYMENT TECHNICIAN. Care plan developed with my supervision; agree with above. Rough morning-up for walk and very winded. Notes dry cough. No pain with breathing or congestion to chest. Weight with trend up. Oral drive decreased. No ab pain. Tired and weak in general. Lungs: decreased air movement; no distress on O2. CV: regular AB: soft nt BS decreased MSE: awake alert Plan: Continue with antibiotic therapy. Lasix given to help improve breathing as weight trending up. Renal status stable. Long acting insulin increased. Encourage activities as able Monitor lab. Hospital Course Summary Disclaimer: The visit summary below is not to be considered part of the above Progress Note. Hospital Course: 12/21/17 Admit to inpatient status under the care of Dr. Elmore for sepsis secondary to pneumonia. Cellulitis with open wound noted to left posterior leg. Will consult wound care for treatment recommendations. Rocephin 1g IV was given in ED for empiric treatment of both pneumonia and cellulitis. Will continue Rocephin 1g IV daily. Blood cultures pending. Initial lactate 1.1. Continue home medications. Monitor closely on telemetry. Oxygen as needed to maintain SAO2 >90%. Does not use oxygen at home. Family requested gentle fluid resuscitation given chronic renal disease and risk for edema. 1L NS given in ED. Monitor weight closely. Base line weight 180 lbs. Awaiting urine for further evaluation of possible UTI per family concern. Patient denies dysuria or urinary symptoms but has history of UTI and takes Keflex once daily for suppression therapy. Upon discharge, patient's care will be returned to her PCP, Gela Turcios APRN. 12/22/17 Continue with ceftriaxone and azithromycin for antimicrobial coverage. Discontinue IVF as oral drive stable. Will restart nifedipine as blood pressure elevated, will restart furosemide tomorrow. PT/OT to help improve functional status. 12/23/17 Antibiotics changed yesterday with pos BC with staph (95% likelihood MRSA). Zithromax dc'd. Vanco started per pharm protocol. Cont Rocephin for pulm. WBC increased slightly to 23.2. Repeated BC this am. BP elevated - nifedipine resumed yesterday. Furosemide started this am. Renal function approaching baseline - BUN 69, cr 2.8 Code status D/W patient and daughter Oralia (her DPOA) - at this time she requests full resuscitation. In addition, she is not opposed to dialysis -- daughter asked to hold off on PICC line until we check with Dr. Ramsey. 12/24/17 Continue with Vancomycin for MRSA coverage. Will stop ceftriaxone and initiate doxycycline for coverage as WBC slow to decrease. Initiate Culturelle 1 to TIDWM to help bowel function. Sugars with elevations - needing ISS. Will increase Levemir from 7 to 8 units. 12/25/17 WBC still elevated at 21.3 and had fever of 101.3 last night. Abx were adjusted yesterday; Rocephin dc'd and doxy started. Continues on vanc. Weight trending up ~2 kg. CXR reviewed - mild pulmonary edema, along with conversational dyspnea and wheezing -- will give IV Lasix 20 mg x1. Renal status steady with BUN 71, cr 2.9. D/w Dr. Blas, button sewing machine operator for Dr. Ramsey -- usually EJ or IJ is preferable to PICC if longer-term IV abx are needed. Fasting BGM was 222 this am -- increase Levemir to 10U. Continue SSI.
[2017-12-25] MEDS: INSULIN ASPART 100unit/ml INJECTION SQ SCH (15:19)
[2017-12-25] MEDS: ACETAMINOPHEN 500 MG TABLET PO PRN (21:12)
[2017-12-26] MEDS: NOZIN NASAL SWAB NAS SCH ×3 (06:41→22:37)
[2017-12-26] MEDS: ACETAMINOPHEN 500 MG TABLET PO PRN ×2 (06:50→14:48)
[2017-12-26] MEDS: INSULIN ASPART 100unit/ml INJECTION SQ PRN ×3 (06:51→22:36)
[2017-12-26] MEDS: MULTI-VITAMIN + MINERAL TABLET PO SCH (09:43)
[2017-12-26] MEDS: LACTOBACILLUS (15B cfu) CAPSULE PO SCH ×3 (09:43→18:07)
[2017-12-26] MEDS: RANITIDINE 150 MG TABLET PO SCH ×2 (09:43→21:04)
[2017-12-26] MEDS: CALCIUM 500 + VIT D 200 TABLET PO SCH (09:43)
[2017-12-26] MEDS: FUROSEMIDE 20 MG TABLET PO SCH (09:44)
[2017-12-26] MEDS: LABETALOL 100 MG TABLET PO SCH ×2 (09:44→21:04)
--- NOTE | 2017-12-26 10:02 | Progress Note ---
- Date 12/26/17 Subjective: Says she feels weak, but this has been ongoing. No new problems overnight. On 2 liters oxygen this morning. Objective Vital signs: Temperature 97.0 F 12/26/17 07:49 Pulse Rate 85 12/26/17 07:49 Respiratory Rate 18 12/26/17 07:49 Blood Pressure 142/75 H 12/26/17 07:49 Pulse Oximetry 95 12/26/17 07:49 Height/Weight/BMI: Height 5 ft 6 in Weight 85.1 kg Body Mass Index 29.5 - Constitutional Present: no acute distress - Routine Respiratory Exam Present: CTA bilaterally - Routine Cardiovascular Exam Present: RRR, no murmur - Routine Abdominal Exam Present: soft, non tender - Routine Extremities Exam Present: edema Comments: 1-2+ edema bilateral LE, no cyanosis or clubbing - Routine Skin Exam Present: intact, dry, warm - Routine Neurological Exam Present: alert, oriented X3, CN II-XII intact Results - Labs CBC & Chem 7: 12/26/17 04:06 12/26/17 04:06 Microbiology Results: Microbiology 12/23/17 04:13 Peripheral/Iv Start Blood Culture - Preliminary No Growth After 3 Days 12/23/17 04:14 Peripheral/Iv Start Blood Culture - Preliminary No Growth After 3 Days Assessment and Plan (1) MRSA bacteremia Current visit: Yes Status: Acute Assessment and Plan: Assessment Staph bacteremia - MRSA Sepsis as indicated by leukocytosis, tachycardia, fever. Left lower lobe pneumonia, POA. Left lower extremity cellulitis with open wound, acute. Leukocytosis Chronic kidney disease, stage IV - baseline SCr 2.7 - sees Dr. Ramsey. Hypertension. Diabetes mellitus, type 2 insulin dependent. Chronic anemia with iron deficiency - recent iron transfusion. Bilateral peripheral edema - baseline weight 180 lbs. Plan WBC still elevated at 20.5, afebrile overnight. Abx were adjusted 12/24/17; Rocephin dc'd and doxy started. Continues on vanc for MRSA bacteremia. Check Procalcitonin trending up 0.98 to 1.25. Will get transthoracic echo to evaluate EF and start to evaluate heart valves. May benefit from AXEL if infection not clearing. Still appears volume up - will start IV lasix and monitor creatinine closely. Renal status steady with BUN 71, cr 2.9. D/w Dr. Blas, horse and wagon driver for Dr. Ramsey -- usually EJ or IJ is preferable to PICC if longer-term IV abx are needed. Fasting BGM improved this morning after increasing levemir to 10 units last night. Continue SSI. DVT Prophylaxis: SCD's, SQ Heparin GI Prophylaxis: Rantidine - Physician Narrative Narrative: Date: 12/26/17 Time: 0959 Hospital Course Summary Disclaimer: The visit summary below is not to be considered part of the above Progress Note. Hospital Course: 12/21/17 Admit to inpatient status under the care of Dr. Elmore for sepsis secondary to pneumonia. Cellulitis with open wound noted to left posterior leg. Will consult wound care for treatment recommendations. Rocephin 1g IV was given in ED for empiric treatment of both pneumonia and cellulitis. Will continue Rocephin 1g IV daily. Blood cultures pending. Initial lactate 1.1. Continue home medications. Monitor closely on telemetry. Oxygen as needed to maintain SAO2 >90%. Does not use oxygen at home. Family requested gentle fluid resuscitation given chronic renal disease and risk for edema. 1L NS given in ED. Monitor weight closely. Base line weight 180 lbs. Awaiting urine for further evaluation of possible UTI per family concern. Patient denies dysuria or urinary symptoms but has history of UTI and takes Keflex once daily for suppression therapy. Upon discharge, patient's care will be returned to her PCP, Gela Turcios APRN. 12/22/17 Continue with ceftriaxone and azithromycin for antimicrobial coverage. Discontinue IVF as oral drive stable. Will restart nifedipine as blood pressure elevated, will restart furosemide tomorrow. PT/OT to help improve functional status. 12/23/17 Antibiotics changed yesterday with pos BC with staph (95% likelihood MRSA). Zithromax dc'd. Vanco started per pharm protocol. Cont Rocephin for pulm. WBC increased slightly to 23.2. Repeated BC this am. BP elevated - nifedipine resumed yesterday. Furosemide started this am. Renal function approaching baseline - BUN 69, cr 2.8 Code status D/W patient and daughter Oralia (her DPOA) - at this time she requests full resuscitation. In addition, she is not opposed to dialysis -- daughter asked to hold off on PICC line until we check with Dr. Ramsey. 12/24/17 Continue with Vancomycin for MRSA coverage. Will stop ceftriaxone and initiate doxycycline for coverage as WBC slow to decrease. Initiate Culturelle 1 to TIDWM to help bowel function. Sugars with elevations - needing ISS. Will increase Levemir from 7 to 8 units. 12/25/17 WBC still elevated at 21.3 and had fever of 101.3 last night. Abx were adjusted yesterday; Rocephin dc'd and doxy started. Continues on vanc. Weight trending up ~2 kg. CXR reviewed - mild pulmonary edema, along with conversational dyspnea and wheezing -- will give IV Lasix 20 mg x1. Renal status steady with BUN 71, cr 2.9. D/w Dr. Blas, horse and wagon driver for Dr. Ramsey -- usually EJ or IJ is preferable to PICC if longer-term IV abx are needed. Fasting BGM was 222 this am -- increase Levemir to 10U. Continue SSI. 12/26/17 WBC still elevated at 20.5, afebrile overnight. Abx were adjusted 12/24/17; Rocephin dc'd and doxy started. Continues on vanc for MRSA bacteremia. Check Procalcitonin trending up 0.98 to 1.25. Will get transthoracic echo to evaluate EF and start to evaluate heart valves. May benefit from AXEL if infection not clearing. Still appears volume up - will start IV lasix and monitor creatinine closely. Renal status steady with BUN 71, cr 2.9. D/w Dr. Blas, horse and wagon driver for Dr. Ramsey -- usually EJ or IJ is preferable to PICC if longer-term IV abx are needed. Fasting BGM improved this morning after increasing levemir to 10 units last night. Continue SSI.
[2017-12-26] MEDS: DOXYCYCLINE 100 MG in NS 250ml 250 ML IV SCH ×2 (10:08→21:03)
[2017-12-26] MEDS: INSULIN DETEMIR 100unit/ml INJECTION SQ SCH (11:38)
[2017-12-26] MEDS: HEPARIN SUB-Q 5,000units/0.5ml INJECTION SQ SCH ×2 (13:40→18:07)
[2017-12-26] MEDS: FUROSEMIDE 20 MG/2 ML INJECTION IVP SCH ×2 (13:40→21:03)
[2017-12-26] MEDS: INSULIN ASPART 100unit/ml INJECTION SQ SCH (14:49)
[2017-12-27] MEDS: HEPARIN SUB-Q 5,000units/0.5ml INJECTION SQ SCH ×3 (02:00→18:16)
[2017-12-27] MEDS: NOZIN NASAL SWAB NAS SCH ×3 (06:53→22:51)
[2017-12-27] MEDS: CALCIUM 500 + VIT D 200 TABLET PO SCH (09:01)
[2017-12-27] MEDS: RANITIDINE 150 MG TABLET PO SCH ×2 (09:01→21:06)
[2017-12-27] MEDS: LABETALOL 100 MG TABLET PO SCH ×2 (09:02→21:06)
[2017-12-27] MEDS: MULTI-VITAMIN + MINERAL TABLET PO SCH (09:02)
[2017-12-27] MEDS: LACTOBACILLUS (15B cfu) CAPSULE PO SCH ×3 (09:02→18:16)
[2017-12-27] MEDS: SALINE FLUSH 10ml SYRINGE IVF PRN (09:06)
[2017-12-27] MEDS: DOXYCYCLINE 100 MG in NS 250ml 250 ML IV SCH ×3 (09:06→09:09)
[2017-12-27] MEDS: INSULIN DETEMIR 100unit/ml INJECTION SQ SCH (09:07)
[2017-12-27] MEDS: FUROSEMIDE 20 MG/2 ML INJECTION IVP SCH ×2 (09:07→21:05)
[2017-12-27] MEDS: INSULIN ASPART 100unit/ml INJECTION SQ PRN ×3 (11:04→21:03)
--- NOTE | 2017-12-27 12:51 | Progress Note ---
- Date 12/27/17 Subjective: [place] is seen in follow up. She reports feeling a bit better. Remains SOA at times, continues to require O2. Significant edema, but daughters report that this looks better than usual. Daughter is concerned with a wound on left lateral calf- very small and closed- daughter reports this is "Much Better." no c/o pain. No GI c/o. Chart is reviewed for collateral information. Objective Vital signs: Temperature 96.4 F L 12/27/17 08:00 Pulse Rate 69 12/27/17 12:00 Respiratory Rate 20 12/27/17 12:00 Blood Pressure 138/79 12/27/17 12:00 Pulse Oximetry 98 12/27/17 12:00 Height/Weight/BMI: Height 1.68 m Weight 88 kg Body Mass Index 29.5 - Constitutional Present: mild distress (Mildly SOA at rest. ), obese, cooperative - Routine HEENT Exam Head: Present: normocephalic, atraumatic Eye: Present: EOMI, PERRL - Routine Respiratory Exam Present: dyspnea, decreased breath sounds, crackles (Coarse crackles/rhonchi in left base. "Popping" noise with inspiration, faint. ), diminished air movement - Routine Cardiovascular Exam Present: RRR, S1, S2, no murmur. Absent: tachycardia - Routine Abdominal Exam Present: soft, normoactive bowel sounds, non distended, non tender - Routine Extremities Exam Present: edema (Marked pitting edema. ), pulses intact - Routine Skin Exam Present: intact, dry, warm, wounds (Minimal wound left lateral leg- closed. ) - Routine Neurological Exam Present: alert, moving all extremities - Routine Psychiatric Exam Present: cooperative Results - Labs CBC & Chem 7: 12/27/17 04:35 12/27/17 04:35 Microbiology Results: Microbiology Microbiology 12/23/17 04:14 Peripheral/Iv Start Blood Culture - Preliminary No Growth After 4 Days 12/23/17 04:13 Peripheral/Iv Start Blood Culture - Preliminary No Growth After 4 Days 12/21/17 16:17 Peripheral/Iv Start Gram Stain - Final 12/21/17 16:17 Peripheral/Iv Start Blood Culture - Final Staphylococcus aureus, MRSA 12/21/17 16:20 Peripheral/Iv Start Gram Stain - Final 12/21/17 16:20 Peripheral/Iv Start Blood Culture - Final Staphylococcus aureus, MRSA Assessment and Plan (1) MRSA bacteremia Current visit: Yes Status: Acute Assessment and Plan: Assessment Staph bacteremia - MRSA Sepsis as indicated by leukocytosis, tachycardia, fever. Left lower lobe pneumonia, POA. Left lower extremity cellulitis with open wound, acute. Leukocytosis Chronic kidney disease, stage IV - baseline SCr 2.7 - sees Dr. Ramsey. Hypertension. Diabetes mellitus, type 2 insulin dependent. Chronic anemia with iron deficiency - recent iron transfusion. Bilateral peripheral edema - baseline weight 180 lbs. Plan 12/27/2017 + MRSA bacteremia- continue Vanco. Consult pharmacy for dosing. Concern on exam that she may have a loculated effusion- will check CT in AM. CKD, baseline 2.7- continue IV Lasix as she remains quite edematous. Echo is pending. Weight continues to trend up. Could consider lymphedema wraps. Ongoing anemia- monitor. Left LE wound is nearly resolved. Glucose has not been documented- confirmed order is in place. will reorder. Continue SCDs. I have seen and evaluated the patient independent of the midlevel above. I agree with the above assessment and plan. Patient says she feels better today. Family at bedside feels patient is more alert today. Good UOP overnight. Continue IV lasix for diuresis. Chest CT as above to further evaluate for persistent pna or loculated effusion. Stopped doxycycline as cellulitis is mostly resolved. 2D echo pending for morning as well. Consider AXEL if persistent infection. PT ordered to increase activity. DVT Prophylaxis: SQ Heparin GI Prophylaxis: Rantidine Resuscitation Status: Full Code - Physician Narrative Narrative: Date: 12/27/17 Time: 1247 Hospital Course Summary Disclaimer: The visit summary below is not to be considered part of the above Progress Note. Hospital Course: 12/21/17 Admit to inpatient status under the care of Dr. Elmore for sepsis secondary to pneumonia. Cellulitis with open wound noted to left posterior leg. Will consult wound care for treatment recommendations. Rocephin 1g IV was given in ED for empiric treatment of both pneumonia and cellulitis. Will continue Rocephin 1g IV daily. Blood cultures pending. Initial lactate 1.1. Continue home medications. Monitor closely on telemetry. Oxygen as needed to maintain SAO2 >90%. Does not use oxygen at home. Family requested gentle fluid resuscitation given chronic renal disease and risk for edema. 1L NS given in ED. Monitor weight closely. Base line weight 180 lbs. Awaiting urine for further evaluation of possible UTI per family concern. Patient denies dysuria or urinary symptoms but has history of UTI and takes Keflex once daily for suppression therapy. Upon discharge, patient's care will be returned to her PCP, Gela Turcios APRN. 12/22/17 Continue with ceftriaxone and azithromycin for antimicrobial coverage. Discontinue IVF as oral drive stable. Will restart nifedipine as blood pressure elevated, will restart furosemide tomorrow. PT/OT to help improve functional status. 12/23/17 Antibiotics changed yesterday with pos BC with staph (95% likelihood MRSA). Zithromax dc'd. Vanco started per pharm protocol. Cont Rocephin for pulm. WBC increased slightly to 23.2. Repeated BC this am. BP elevated - nifedipine resumed yesterday. Furosemide started this am. Renal function approaching baseline - BUN 69, cr 2.8 Code status D/W patient and daughter Oralia (her DPOA) - at this time she requests full resuscitation. In addition, she is not opposed to dialysis -- daughter asked to hold off on PICC line until we check with Dr. Ramsey. 12/24/17 Continue with Vancomycin for MRSA coverage. Will stop ceftriaxone and initiate doxycycline for coverage as WBC slow to decrease. Initiate Culturelle 1 to TIDWM to help bowel function. Sugars with elevations - needing ISS. Will increase Levemir from 7 to 8 units. 12/25/17 WBC still elevated at 21.3 and had fever of 101.3 last night. Abx were adjusted yesterday; Rocephin dc'd and doxy started. Continues on vanc. Weight trending up ~2 kg. CXR reviewed - mild pulmonary edema, along with conversational dyspnea and wheezing -- will give IV Lasix 20 mg x1. Renal status steady with BUN 71, cr 2.9. D/w Dr. Blas, salesperson parts for Dr. Ramsey -- usually EJ or IJ is preferable to PICC if longer-term IV abx are needed. Fasting BGM was 222 this am -- increase Levemir to 10U. Continue SSI. 12/26/17 WBC still elevated at 20.5, afebrile overnight. Abx were adjusted 12/24/17; Rocephin dc'd and doxy started. Continues on vanc for MRSA bacteremia. Check Procalcitonin trending up 0.98 to 1.25. Will get transthoracic echo to evaluate EF and start to evaluate heart valves. May benefit from AXEL if infection not clearing. Still appears volume up - will start IV lasix and monitor creatinine closely. Renal status steady with BUN 71, cr 2.9. D/w Dr. Blas, salesperson parts for Dr. Ramsey -- usually EJ or IJ is preferable to PICC if longer-term IV abx are needed. Fasting BGM improved this morning after increasing levemir to 10 units last night. Continue SSI. 12/27/2017 + MRSA bacteremia- continue Vanco. Consult pharmacy for dosing. Concern on exam that she may have a loculated effusion- will check CT in AM. CKD, baseline 2.7- continue IV Lasix as she remains quite edematous. Echo is pending. Weight continues to trend up. Could consider lymphedema wraps. Ongoing anemia- monitor. Left LE wound is nearly resolved. Glucose has not been documented- confirmed order is in place. will reorder. Continue SCDs.
[2017-12-27] MEDS ORDERED: RENAL DOSING - PHARMACY CONSULT MC ONE (12:53)
[2017-12-27] MEDS ORDERED: VANCOMYCIN - PHARMACY CONSULT MC ONE (12:53)
--- NOTE | 2017-12-27 13:16 | Pharmacy Consult- Renal Dosing ---
[facility]-Renal Dosing - Laboratory Information 12/22/17 12/23/17 12/24/17 04:52 04:13 05:20 BUN 72.0 H* 69.0 H* 71.0 H* Creatinine 2.9 H 2.8 H 2.8 H 12/25/17 12/26/17 12/27/17 04:57 04:06 04:35 BUN 71.0 H* 76.0 H* 81.0 H* Creatinine 2.9 H 3.0 H 3.1 H - Consult Information Renal dosing consult: estimated CrCl ~ 14 ml/min. Medications reviewed for renal adjustments. Ranitidine dose is already at an appropriate dose of 75 mg po bid. Other current medications do not require renal adjustment. Thank you for the consult, Gela Barillas RPh
--- NOTE | 2017-12-27 15:24 | Pharmacy Consult-Antibiotics ---
Pharmacy Consult-Vancomycin - Laboratory Information WBC 14.6 T/MM3 (4.5-11.0) H 12/27/17 04:35 BUN 81.0 MG/DL (7-17) H* 12/27/17 04:35 Creatinine 3.1 mg/dL (0.7-1.2) H 12/27/17 04:35 Procalcitonin 1.25 NG/ML 12/26/17 04:06 Vancomycin Trough 19.52 ug/mL (15-20) 12/27/17 14:35 - Consult Information VANCOMYCIN CONSULT: day 6 goal vancomycin trough range: 15 to 20 mcg/ml Vancomycin Trough = 19.52 mcg/ml. Today's SCr = 3.1 mg/dl. Will continue Vancomycin 1250 mg IV q36hrs. Will continue to monitor and make adjustments accordingly. Thank you, Gela Barillas [facility]
[2017-12-27] MEDS: INSULIN ASPART 100unit/ml INJECTION SQ SCH (17:21)
[2017-12-27] MEDS: ACETAMINOPHEN 500 MG TABLET PO SCH ×2 (18:16→21:06)
[2017-12-28] MEDS: HEPARIN SUB-Q 5,000units/0.5ml INJECTION SQ SCH ×3 (00:44→16:24)
[2017-12-28] MEDS: INSULIN DETEMIR 100unit/ml INJECTION SQ SCH (09:47)
[2017-12-28] MEDS: CALCIUM 500 + VIT D 200 TABLET PO SCH (09:48)
[2017-12-28] MEDS: LACTOBACILLUS (15B cfu) CAPSULE PO SCH ×3 (09:48→16:35)
[2017-12-28] MEDS: MULTI-VITAMIN + MINERAL TABLET PO SCH (09:48)
[2017-12-28] MEDS: NOZIN NASAL SWAB NAS SCH ×3 (09:48→22:37)
[2017-12-28] MEDS: LABETALOL 100 MG TABLET PO SCH ×2 (09:49→20:21)
[2017-12-28] MEDS: ACETAMINOPHEN 500 MG TABLET PO SCH ×4 (09:49→20:21)
[2017-12-28] MEDS: RANITIDINE 150 MG TABLET PO SCH ×2 (09:49→20:22)
[2017-12-28] MEDS: INSULIN ASPART 100unit/ml INJECTION SQ PRN ×3 (12:52→20:23)
[2017-12-28] MEDS: FUROSEMIDE 20 MG/2 ML INJECTION IVP SCH (13:30)
[2017-12-28] MEDS: SALINE FLUSH 10ml SYRINGE IVF PRN (13:41)
[2017-12-28] MEDS ORDERED: BISACODYL 10 MG SUPPOSITORY RECTALLY PRN (17:20)
--- NOTE | 2017-12-28 17:20 | Progress Note ---
- Date 12/28/17 Subjective: F/U: Staph bacteremia - MRSA, Sepsis, Pneumonia Doing about the same. Tired and weak-has been getting up some but strength slow to return. Breathing about the same-notes some SOA but little congestion or cough. Appetite fair. No nausea or ab pain. Bowel moving some but notes has to work to pass bowel movement. Urine output stable. Objective Vital signs: Temperature 97 F 12/28/17 15:43 Pulse Rate 65 12/28/17 15:43 Respiratory Rate 16 12/28/17 15:43 Blood Pressure 121/64 12/28/17 15:43 Pulse Oximetry 94 12/28/17 15:43 Height/Weight/BMI: Height 1.68 m Weight 86.1 kg Body Mass Index 29.5 - Constitutional Present: well nourished, well developed, obese, cooperative, other (Looks weak. Thoughts linear) - Routine HEENT Exam Head: Present: normocephalic, atraumatic Eye: Present: EOMI, PERRL ENT: Present: mucous membranes moist - Routine Respiratory Exam Present: decreased breath sounds (Right basilar blunting). Absent: rales, respiratory distress, rhonchi, wheezes, crackles - Routine Cardiovascular Exam Present: RRR, no murmur - Routine Abdominal Exam Present: soft, normoactive bowel sounds, non distended, non tender - Routine Extremities Exam Present: edema (+1 BLE), pulses intact. Absent: cyanosis, clubbing - Routine Musculoskeletal Exam Musculoskeletal: Present: no clubbing or cyanosis - Routine Skin Exam Present: dry, warm - Routine Neurological Exam Present: alert, oriented X3, CN II-XII intact, moving all extremities, vision grossly intact, hearing grossly intact, normal speech. Absent: altered mental status - Routine Psychiatric Exam Present: normal affect, normal thought process, cooperative. Absent: anxious, agitated Results - Labs CBC & Chem 7: 12/28/17 04:47 12/28/17 04:47 Microbiology Results: Microbiology 12/23/17 04:14 Peripheral/Iv Start Blood Culture - Final No Growth After 5 Days 12/23/17 04:13 Peripheral/Iv Start Blood Culture - Final No Growth After 5 Days Assessment and Plan (1) MRSA bacteremia Current visit: Yes Status: Acute Assessment and Plan: Assessment Staph bacteremia - MRSA Sepsis as indicated by leukocytosis, tachycardia, fever. Left lower lobe pneumonia, POA. Left lower extremity cellulitis with open wound, acute. Leukocytosis Chronic kidney disease, stage IV - baseline SCr 2.7 - sees Dr. Ramsey. Hypertension. Diabetes mellitus, type 2 insulin dependent. Chronic anemia with iron deficiency - recent iron transfusion. Bilateral peripheral edema - baseline weight 180 lbs. Plan Continue with vancomycin for MRSA treatment. WBC trending down. Change IV furosemide to 20mg IV 0800 and 1500 - will give just 1 dose today as creatinine with increase to 3.4. Bowels feel slow for patient - will start routine Miralax daily with prn Dulcolax suppositories. Continue wound care. Sugars still with some elevations - will increase Levemir to 11 units in am. Encourage activities for strengthening. CT chest and ECHO pending. Recheck BMP in am due to CKD and medication use. Repeat CBC in am due to leukocytosis. Time spent with patient care 25 minutes. DVT Prophylaxis: SCD's, SQ Heparin Resuscitation Status: Full Code - Time spent with patient Time with patient PN: 25 minutes - Physician Narrative Physician: Prosper Elmore MD Narrative: Date: 12/28/17 Time: 1716 Hospital Course Summary Disclaimer: The visit summary below is not to be considered part of the above Progress Note. Hospital Course: 12/21/17 Admit to inpatient status under the care of Dr. Elmore for sepsis secondary to pneumonia. Cellulitis with open wound noted to left posterior leg. Will consult wound care for treatment recommendations. Rocephin 1g IV was given in ED for empiric treatment of both pneumonia and cellulitis. Will continue Rocephin 1g IV daily. Blood cultures pending. Initial lactate 1.1. Continue home medications. Monitor closely on telemetry. Oxygen as needed to maintain SAO2 >90%. Does not use oxygen at home. Family requested gentle fluid resuscitation given chronic renal disease and risk for edema. 1L NS given in ED. Monitor weight closely. Base line weight 180 lbs. Awaiting urine for further evaluation of possible UTI per family concern. Patient denies dysuria or urinary symptoms but has history of UTI and takes Keflex once daily for suppression therapy. Upon discharge, patient's care will be returned to her PCP, Gela Turcios APRN. 12/22/17 Continue with ceftriaxone and azithromycin for antimicrobial coverage. Discontinue IVF as oral drive stable. Will restart nifedipine as blood pressure elevated, will restart furosemide tomorrow. PT/OT to help improve functional status. 12/23/17 Antibiotics changed yesterday with pos BC with staph (95% likelihood MRSA). Zithromax dc'd. Vanco started per pharm protocol. Cont Rocephin for pulm. WBC increased slightly to 23.2. Repeated BC this am. BP elevated - nifedipine resumed yesterday. Furosemide started this am. Renal function approaching baseline - BUN 69, cr 2.8 Code status D/W patient and daughter Oralia (her DPOA) - at this time she requests full resuscitation. In addition, she is not opposed to dialysis -- daughter asked to hold off on PICC line until we check with Dr. Ramsey. 12/24/17 Continue with Vancomycin for MRSA coverage. Will stop ceftriaxone and initiate doxycycline for coverage as WBC slow to decrease. Initiate Culturelle 1 to TIDWM to help bowel function. Sugars with elevations - needing ISS. Will increase Levemir from 7 to 8 units. 12/25/17 WBC still elevated at 21.3 and had fever of 101.3 last night. Abx were adjusted yesterday; Rocephin dc'd and doxy started. Continues on vancomycin. Weight trending up ~2 kg. CXR reviewed - mild pulmonary edema, along with conversational dyspnea and wheezing -- will give IV Lasix 20 mg x1. Renal status steady with BUN 71, cr 2.9. D/w Dr. Blas, production underwriter for Dr. Ramsey -- usually EJ or IJ is preferable to PICC if longer-term IV abx are needed. Fasting BGM was 222 this am -- increase Levemir to 10U. Continue SSI. 12/26/17 WBC still elevated at 20.5, afebrile overnight. Abx were adjusted 12/24/17; Rocephin dc'd and doxy started. Continues on vanc for MRSA bacteremia. Check Procalcitonin trending up 0.98 to 1.25. Will get transthoracic echo to evaluate EF and start to evaluate heart valves. May benefit from AXEL if infection not clearing. Still appears volume up - will start IV Lasix and monitor creatinine closely. Renal status steady with BUN 71, cr 2.9. Fasting BGM improved this morning after increasing Levemir to 10 units. Continue SSI. 12/27/17 + MRSA bacteremia- continue Vanco. Concern on exam that she may have a loculated effusion- will check CT in AM. CKD, baseline 2.7- continue IV Lasix as she remains quite edematous. Echo is pending. Weight continues to trend up. Could consider lymphedema wraps. Ongoing anemia- monitor. Left LE wound is nearly resolved. Glucose has not been documented- confirmed order is in place. will reorder. Continue SCDs. 12/28/17 Continue with vancomycin for MRSA treatment. WBC trending down. Change IV furosemide to 20mg IV 0800 and 1500 - will give just 1 dose today as creatinine with increase to 3.4. Bowels feel slow for patient - will start routine Miralax daily with prn Dulcolax suppositories. Sugars still with some elevations - will increase Levemir to 11 units in am. Continue wound care. Encourage activities for strengthening. CT chest and ECHO pending.
--- NOTE | 2017-12-28 17:45 | Echocardiogram ---
DATE OF PROCEDURE December 28, 2017 This is a two-dimensional echo with spectral Doppler, color-flow and M-mode. It was obtained in a patient with congestive heart failure and MRSA. Left atrium is dilated. Left ventricular end-diastolic dimension is normal. Left ventricular wall thickness is increased. LV systolic function is normal with ejection fraction of 62%. Right atrium is normal. Right ventricle is normal. Aortic root dimension is normal. Mitral annulus is calcified. Mitral valve leaflets are normal with mild mitral regurgitation. Aortic valve shows no stenosis or insufficiency. Tricuspid valve shows mild tricuspid regurgitation with estimated pulmonary artery systolic pressure of 42. Pulmonary valve shows trace of pulmonary insufficiency. There is no pericardial effusion. IMPRESSION 1. Normal LV systolic function with ejection fraction of about 62%. 2. Concentric left ventricular hypertrophy. 3. Left atrial dilation. 4. Mitral annulus calcification with mild mitral regurgitation. 5. Mild tricuspid regurgitation with [id number] pulmonary hypertension with estimated pulmonary artery systolic pressure of 42. 6. Trace of pulmonary insufficiency. 7. Dilated inferior vena cava suggestive of elevated central venous pressure. MTDD
[2017-12-28] MEDS: POLYETHYL GLYCOL 3350 17gm PACKET PO SCH (17:47)
--- NOTE | 2017-12-28 22:59 | CT Scan Report ---
CT chest wo con INDICATION: Pneumonia COMPARISON: None. TECHNIQUE: Routine CT scan of the chest was performed without IV contrast administration. Coronal and sagittal multiplanar reconstructions were also obtained. All CT scans are performed using radiation dose reduction technique. FINDINGS: Lungs and Airways: No pulmonary nodule. No pulmonary mass or consolidation. No endoluminal lesion. Pleura: There are small to moderate sized bilateral pleural effusions with subjacent atelectasis and/or infiltrate in both lower lobes.. Heart and Mediastinum: Both lobes of the thyroid gland appear heterogeneous with calcifications in the right lobe of the thyroid gland. The evaluation for adenopathy is limited without IV contrast but there is no obvious pathologic adenopathy in the mediastinal, hilar or axillary regions. There is no obvious supraclavicular adenopathy. Subcentimeter lymph nodes are seen in the precarinal region, AP window and prevascular space but no pathologic adenopathy is seen in the mediastinum. There is however an enlarged lymph node in the right retrocrural region that measures 3.3 cm.. The heart is mildly enlarged showing evidence for three-vessel coronary artery calcifications. There is calcification in the mitral valve annulus. There is no pericardial effusion but there appears to be a thin rim of calcification within the pericardium..The great vessels are normal caliber. There is mild scattered plaque formation along the course of the thoracic aorta. Abdomen: Limited imaging through the upper abdomen shows no obvious adrenal enlargement and the unenhanced appearance of the liver and spleen appear homogeneous. There is small volume perihepatic ascites. Calcifications are seen in the splenic artery.. There is a small hiatal hernia with gaseous distention of the proximal esophagus. Bones and Soft Tissues: The osseous structures show advanced degenerative disc changes in the mildly kyphoscoliotic thoracic spine. The chest wall soft tissues show no obvious worrisome abnormalities there is calcification in the right breast soft tissues. Postsurgical changes of prior open reduction internal fixation of the right humerus is visualized. There are localized edematous changes in the left lower chest wall/left flank of uncertain etiology may may be posttraumatic in etiology. IMPRESSION: 1. The heart is enlarged. There are pericardial calcifications which can be seen with constrictive pericarditis, correlate clinically. Further evaluation with echocardiogram may be helpful. 2. Moderate size bilateral pleural effusions with subjacent atelectasis and/or infiltrate in both lower lobes. 3. Small volume perihepatic ascites. 4. Right retrocrural adenopathy which appears borderline pathologic size. Further evaluation with CT scan of the abdomen and pelvis is recommended. 5. Heterogeneous appearance of the thyroid gland with calcification in the right lobe of the thyroid gland. Sonographic assessment may be helpful. 6. Localized edematous change in the posterior left lower chest wall/left flank of uncertain etiology may may be posttraumatic in etiology or secondary to cellulitis. Recommend clinical correlation and follow-up as indicated. .
[2017-12-29] MEDS: HEPARIN SUB-Q 5,000units/0.5ml INJECTION SQ SCH ×3 (00:26→17:16)
[2017-12-29] MEDS ORDERED: MELATONIN 1 MG TABLET PO ONE ×2 (00:31→23:59)
[2017-12-29] MEDS: NOZIN NASAL SWAB NAS SCH ×2 (06:10→13:59)
[2017-12-29] MEDS: INSULIN ASPART 100unit/ml INJECTION SQ PRN ×4 (06:29→20:44)
[2017-12-29] MEDS ORDERED: FUROSEMIDE 20 MG/2 ML INJECTION IVP SCH (08:00)
[2017-12-29] MEDS: INSULIN DETEMIR 100unit/ml INJECTION SQ SCH (08:20)
[2017-12-29] MEDS: RANITIDINE 150 MG TABLET PO SCH ×2 (08:21→20:45)
[2017-12-29] MEDS: LACTOBACILLUS (15B cfu) CAPSULE PO SCH ×3 (08:25→17:16)
[2017-12-29] MEDS: ACETAMINOPHEN 500 MG TABLET PO SCH ×4 (08:25→20:45)
[2017-12-29] MEDS: POLYETHYL GLYCOL 3350 17gm PACKET PO SCH (08:25)
[2017-12-29] MEDS: MULTI-VITAMIN + MINERAL TABLET PO SCH (08:25)
[2017-12-29] MEDS: LABETALOL 100 MG TABLET PO SCH ×2 (08:25→20:45)
[2017-12-29] MEDS: CALCIUM 500 + VIT D 200 TABLET PO SCH (08:25)
--- NOTE | 2017-12-29 11:27 | Pharmacy Consult-Antibiotics ---
Pharmacy Consult-Vancomycin - Laboratory Information WBC 11.0 T/MM3 (4.5-11.0) 12/29/17 04:00 BUN 93.0 MG/DL (7-17) H* 12/29/17 04:00 Creatinine 3.5 mg/dL (0.7-1.2) H 12/29/17 04:00 Procalcitonin 1.25 NG/ML 12/26/17 04:06 Vancomycin Trough 20.18 ug/mL (15-20) H 12/29/17 04:00 - Consult Information VANCOMYCIN CONSULT: Vancomycin Trough = 20.18 mcg/ml. Today's SCr = 3.5 mg/dl. Will give Vancomycin 1,000 mg IV q36hrs. Will continue to monitor and make adjustments accordingly. Thank you.
[2017-12-29] MEDS: SALINE FLUSH 10ml SYRINGE IVF PRN (11:33)
--- NOTE | 2017-12-29 13:26 | Progress Note ---
- Date 12/29/17 Subjective: F/U: Staph bacteremia - MRSA, Sepsis, Pneumonia Doing okay today. Not having f/c. Strength still decreased but trying to work on more activities. Not as tired and exhausted as last week. Breathing stable. Feel some SOA but not having chest congestion or pain with breathing. Chronic cough stable. Bowels moving. No ab pain or nausea. Appetite fair-eating, just not really that hungry. Objective Vital signs: Temperature 96.6 F L 12/29/17 08:06 Pulse Rate 79 12/29/17 08:06 Respiratory Rate 18 12/29/17 08:06 Blood Pressure 157/77 H 12/29/17 08:06 Pulse Oximetry 97 12/29/17 08:06 Height/Weight/BMI: Height 1.68 m Weight 86 kg Body Mass Index 29.5 - Constitutional Present: well nourished, well developed, average body habitus, cooperative - Routine HEENT Exam Head: Present: normocephalic, atraumatic Eye: Present: EOMI, PERRL ENT: Present: mucous membranes moist (No thrush) - Routine Respiratory Exam Present: decreased breath sounds (Basilar blunting), wheezes (faint end expiratory). Absent: respiratory distress - Routine Cardiovascular Exam Present: RRR, no murmur - Routine Abdominal Exam Present: soft, normoactive bowel sounds, non distended, non tender - Routine Extremities Exam Present: edema (+2 BLE), pulses intact. Absent: cyanosis, clubbing Comments: SCD in place - Routine Musculoskeletal Exam Musculoskeletal: Absent: no clubbing or cyanosis - Routine Skin Exam Present: dry, warm - Routine Neurological Exam Present: alert, oriented X3, CN II-XII intact, moving all extremities, vision grossly intact, hearing grossly intact, normal speech. Absent: motor deficit, altered mental status - Routine Psychiatric Exam Present: normal affect, normal thought process, cooperative Results - Labs CBC & Chem 7: 12/29/17 04:00 12/29/17 04:00 Microbiology Results: Microbiology 12/23/17 04:14 Peripheral/Iv Start Blood Culture - Final No Growth After 5 Days 12/23/17 04:13 Peripheral/Iv Start Blood Culture - Final No Growth After 5 Days 12/21/17 16:17 Peripheral/Iv Start Gram Stain - Final 12/21/17 16:17 Peripheral/Iv Start Blood Culture - Final Staphylococcus aureus, MRSA 12/21/17 16:20 Peripheral/Iv Start Gram Stain - Final 12/21/17 16:20 Peripheral/Iv Start Blood Culture - Final Staphylococcus aureus, MRSA - Echocardiogram History of Echocardiogram: DATE OF PROCEDURE. December 28, 2017. This is a two- dimensional echo with spectral Doppler, color-flow and M-mode. It was obtained in a patient with congestive heart failure and MRSA. Left atrium is dilated. Left ventricular end-diastolic dimension is normal. Left ventricular wall thickness is increased. LV systolic function is normal with ejection fraction of 62%. Right atrium is normal. Right ventricle is normal. Aortic root dimension is normal. Mitral annulus is calcified. Mitral valve leaflets are normal with mild mitral regurgitation. Aortic valve shows no stenosis or insufficiency. Tricuspid valve shows mild tricuspid regurgitation with estimated pulmonary artery systolic pressure of 42. Pulmonary valve shows trace of pulmonary insufficiency. There is no pericardial effusion. IMPRESSION. 1. Normal LV systolic function with ejection fraction of about 62% . 2. Concentric left ventricular hypertrophy. 3. Left atrial dilation. 4. Mitral annulus calcification with mild mitral regurgitation. 5. Mild tricuspid regurgitation with [id number] pulmonary hypertension with estimated pulmonary artery systolic pressure of 42. 6. Trace of pulmonary insufficiency. 7. Dilated inferior vena cava suggestive of elevated central venous pressure. Assessment and Plan (1) MRSA bacteremia Current visit: Yes Status: Acute Assessment and Plan: Assessment Staph bacteremia - MRSA Sepsis as indicated by leukocytosis, tachycardia, fever. Left lower lobe pneumonia, POA. Left lower extremity cellulitis with open wound, acute. Leukocytosis Chronic kidney disease, stage IV - baseline SCr 2.7 - sees Dr. Ramsey. Hypertension. Diabetes mellitus, type 2 insulin dependent. Chronic anemia with iron deficiency - recent iron transfusion. Bilateral peripheral edema - baseline weight 180 lbs. Plan WBC normalized. CT showing pleural effusions. Creatinine with slight increase to 3.5. Will stop IV furosemide. Continue vancomycin - would change to doxycycline in outpatient setting. Sugars stable - continue insulin regimen. Encourage continued activities to help strength. CM has mad arrangements for skilled care at [facility]. Possible able to discharge tomorrow if going well. Will recheck CBC in am due to leukocytosis and resolving sepsis. Recheck BMP in am secondary to renal status. Case discussed with patient's daughter and CM. Time spent with patient care 25 minutes. DVT Prophylaxis: SCD's, SQ Heparin Resuscitation Status: Full Code - Time spent with patient Time with patient PN: 25 minutes - Physician Narrative Physician: Prosper Elmore MD Narrative: Date: 12/29/17 Time: 1323 Hospital Course Summary Disclaimer: The visit summary below is not to be considered part of the above Progress Note. Hospital Course: 12/21/17 Admit to inpatient status under the care of Dr. Elmore for sepsis secondary to pneumonia. Cellulitis with open wound noted to left posterior leg. Will consult wound care for treatment recommendations. Rocephin 1g IV was given in ED for empiric treatment of both pneumonia and cellulitis. Will continue Rocephin 1g IV daily. Blood cultures pending. Initial lactate 1.1. Continue home medications. Monitor closely on telemetry. Oxygen as needed to maintain SAO2 >90%. Does not use oxygen at home. Family requested gentle fluid resuscitation given chronic renal disease and risk for edema. 1L NS given in ED. Monitor weight closely. Base line weight 180 lbs. Awaiting urine for further evaluation of possible UTI per family concern. Patient denies dysuria or urinary symptoms but has history of UTI and takes Keflex once daily for suppression therapy. Upon discharge, patient's care will be returned to her PCP, Gela Turcios, [facility]. 12/22/17 Continue with ceftriaxone and azithromycin for antimicrobial coverage. Discontinue IVF as oral drive stable. Will restart nifedipine as blood pressure elevated, will restart furosemide tomorrow. PT/OT to help improve functional status. 12/23/17 Antibiotics changed yesterday with pos BC with staph (95% likelihood MRSA). Zithromax dc'd. Vanco started per pharm protocol. Cont Rocephin for pulm. WBC increased slightly to 23.2. Repeated BC this am. BP elevated - nifedipine resumed yesterday. Furosemide started this am. Renal function approaching baseline - BUN 69, cr 2.8 Code status D/W patient and daughter Oralia (her DPOA) - at this time she requests full resuscitation. In addition, she is not opposed to dialysis -- daughter asked to hold off on PICC line until we check with Dr. Ramsey. 12/24/17 Continue with Vancomycin for MRSA coverage. Will stop ceftriaxone and initiate doxycycline for coverage as WBC slow to decrease. Initiate Culturelle 1 to TIDWM to help bowel function. Sugars with elevations - needing ISS. Will increase Levemir from 7 to 8 units. 12/25/17 WBC still elevated at 21.3 and had fever of 101.3 last night. Abx were adjusted yesterday; Rocephin dc'd and doxy started. Continues on vancomycin. Weight trending up ~2 kg. CXR reviewed - mild pulmonary edema, along with conversational dyspnea and wheezing -- will give IV Lasix 20 mg x1. Renal status steady with BUN 71, cr 2.9. D/w Dr. Blas, personnel consultant for Dr. Ramsey -- usually EJ or IJ is preferable to PICC if longer-term IV abx are needed. Fasting BGM was 222 this am -- increase Levemir to 10U. Continue SSI. 12/26/17 WBC still elevated at 20.5, afebrile overnight. Abx were adjusted 12/24/17; Rocephin dc'd and doxy started. Continues on vanc for MRSA bacteremia. Check Procalcitonin trending up 0.98 to 1.25. Will get transthoracic echo to evaluate EF and start to evaluate heart valves. May benefit from AXEL if infection not clearing. Still appears volume up - will start IV Lasix and monitor creatinine closely. Renal status steady with BUN 71, cr 2.9. Fasting BGM improved this morning after increasing Levemir to 10 units. Continue SSI. 12/27/17 + MRSA bacteremia- continue Vanco. Concern on exam that she may have a loculated effusion- will check CT in AM. CKD, baseline 2.7- continue IV Lasix as she remains quite edematous. Echo is pending. Weight continues to trend up. Could consider lymphedema wraps. Ongoing anemia- monitor. Left LE wound is nearly resolved. Glucose has not been documented- confirmed order is in place. will reorder. Continue SCDs. 12/28/17 Continue with vancomycin for MRSA treatment. WBC trending down. Change IV furosemide to 20mg IV 0800 and 1500 - will give just 1 dose today as creatinine with increase to 3.4. Bowels feel slow for patient - will start routine Miralax daily with prn Dulcolax suppositories. Sugars still with some elevations - will increase Levemir to 11 units in am. Continue wound care. Encourage activities for strengthening. CT chest and ECHO pending. 12/29/[address] showing pleural effusions. Creatinine with slight increase to 3.5. Will stop IV furosemide. Continue vancomycin - would change to doxycycline in outpatient setting. Sugars stable - continue insulin regimen. Encourage continued activities to help strength. CM has mad arrangements for skilled care at [facility]. Possible able to discharge tomorrow if going well.
[2017-12-30] MEDS: HEPARIN SUB-Q 5,000units/0.5ml INJECTION SQ SCH ×3 (00:13→16:57)
[2017-12-30] MEDS: NOZIN NASAL SWAB NAS SCH ×4 (00:13→23:49)
[2017-12-30] MEDS: SALINE FLUSH 10ml SYRINGE IVF PRN ×2 (06:00→23:50)
[2017-12-30] MEDS: INSULIN ASPART 100unit/ml INJECTION SQ PRN ×4 (06:22→20:36)
[2017-12-30] MEDS: INSULIN DETEMIR 100unit/ml INJECTION SQ SCH (10:00)
[2017-12-30] MEDS: LABETALOL 100 MG TABLET PO SCH ×2 (10:01→20:36)
[2017-12-30] MEDS: ACETAMINOPHEN 500 MG TABLET PO SCH ×4 (10:01→20:36)
[2017-12-30] MEDS: POLYETHYL GLYCOL 3350 17gm PACKET PO SCH (10:01)
[2017-12-30] MEDS: LACTOBACILLUS (15B cfu) CAPSULE PO SCH ×3 (10:01→16:56)
[2017-12-30] MEDS: MULTI-VITAMIN + MINERAL TABLET PO SCH (10:01)
[2017-12-30] MEDS: RANITIDINE 150 MG TABLET PO SCH ×2 (10:01→20:36)
[2017-12-30] MEDS: CALCIUM 500 + VIT D 200 TABLET PO SCH (10:02)
--- NOTE | 2017-12-30 14:49 | Progress Note ---
- Date 12/30/17 Subjective: F/U: Staph bacteremia - MRSA, Sepsis, Pneumonia Doing about the same. Worked with therapy-slow process, legs weak and hard to move. No having cramps or spams to legs. Breathing feels okay - not congested or winded. O2 saturations in the upper 90's on 1L. No chest pressure or pain. Appetite fair. Bowels stable. No f/c. Objective Vital signs: Temperature 96.9 F 12/30/17 12:00 Pulse Rate 69 12/30/17 12:00 Respiratory Rate 18 12/30/17 12:00 Blood Pressure 115/58 12/30/17 12:00 Pulse Oximetry 96 12/30/17 12:00 Height/Weight/BMI: Height 1.68 m Weight 85.8 kg Body Mass Index 29.5 - Constitutional Present: well nourished, well developed, average body habitus, obese, cooperative - Routine HEENT Exam Head: Present: normocephalic, atraumatic Eye: Present: EOMI, PERRL ENT: Present: mucous membranes moist - Routine Respiratory Exam Present: decreased breath sounds (Basilar blunting). Absent: rales, respiratory distress, rhonchi, wheezes, crackles - Routine Cardiovascular Exam Present: RRR, no murmur - Routine Abdominal Exam Present: soft, normoactive bowel sounds, non distended, non tender - Routine Extremities Exam Present: cyanosis, clubbing, edema (+2 BLE) Comments: SCD in place - Routine Skin Exam Present: intact, warm - Routine Neurological Exam Present: alert, oriented X3, CN II-XII intact, moving all extremities, vision grossly intact, hearing grossly intact, normal speech. Absent: motor deficit, altered mental status - Routine Psychiatric Exam Present: normal affect, normal thought process, cooperative Results - Labs CBC & Chem 7: 12/30/17 05:15 12/30/17 05:15 Microbiology Results: Microbiology 12/23/17 04:14 Peripheral/Iv Start Blood Culture - Final No Growth After 5 Days 12/23/17 04:13 Peripheral/Iv Start Blood Culture - Final No Growth After 5 Days 12/21/17 16:17 Peripheral/Iv Start Gram Stain - Final 12/21/17 16:17 Peripheral/Iv Start Blood Culture - Final Staphylococcus aureus, MRSA 12/21/17 16:20 Peripheral/Iv Start Gram Stain - Final 12/21/17 16:20 Peripheral/Iv Start Blood Culture - Final Staphylococcus aureus, MRSA Assessment and Plan (1) MRSA bacteremia Current visit: Yes Status: Acute Assessment and Plan: Assessment Staph bacteremia - MRSA Sepsis as indicated by leukocytosis, tachycardia, fever. Left lower lobe pneumonia, POA. Left lower extremity cellulitis with open wound, acute. Leukocytosis Chronic kidney disease, stage IV - baseline SCr 2.7 - sees Dr. Ramsey. Hypertension. Diabetes mellitus, type 2 insulin dependent. Chronic anemia with iron deficiency - recent iron transfusion. Bilateral peripheral edema - baseline weight 180 lbs. Plan WBC with slight increase to 12.5. Creatinine 3.3. Weight stable. O2 saturations 94-96% on 1L. Continue vancomycin - would change to doxycycline in outpatient setting. Can restart home furosemide of 20mg daily. Encourage continued activities to help strength. FMLA paperwork filled out for daughter. Will recheck CBC in am due to leukocytosis and resolving sepsis. Recheck BMP in am secondary to renal status. Case discussed with patient's daughter and CM. Time spent with patient care 25 minutes. DVT Prophylaxis: SCD's Resuscitation Status: Full Code - Time spent with patient Time with patient PN: 25 minutes - Physician Narrative Physician: Prosper Elmore MD Narrative: Date: 12/30/17 Time: 7044 Hospital Course Summary Disclaimer: The visit summary below is not to be considered part of the above Progress Note. Hospital Course: 12/21/17 Admit to inpatient status under the care of Dr. Elmore for sepsis secondary to pneumonia. Cellulitis with open wound noted to left posterior leg. Will consult wound care for treatment recommendations. Rocephin 1g IV was given in ED for empiric treatment of both pneumonia and cellulitis. Will continue Rocephin 1g IV daily. Blood cultures pending. Initial lactate 1.1. Continue home medications. Monitor closely on telemetry. Oxygen as needed to maintain SAO2 >90%. Does not use oxygen at home. Family requested gentle fluid resuscitation given chronic renal disease and risk for edema. 1L NS given in ED. Monitor weight closely. Base line weight 180 lbs. Awaiting urine for further evaluation of possible UTI per family concern. Patient denies dysuria or urinary symptoms but has history of UTI and takes Keflex once daily for suppression therapy. Upon discharge, patient's care will be returned to her PCP, Gela Turcios, [employer]. 12/22/17 Continue with ceftriaxone and azithromycin for antimicrobial coverage. Discontinue IVF as oral drive stable. Will restart nifedipine as blood pressure elevated, will restart furosemide tomorrow. PT/OT to help improve functional status. 12/23/17 Antibiotics changed yesterday with pos BC with staph (95% likelihood MRSA). Zithromax dc'd. Vanco started per pharm protocol. Cont Rocephin for pulm. WBC increased slightly to 23.2. Repeated BC this am. BP elevated - nifedipine resumed yesterday. Furosemide started this am. Renal function approaching baseline - BUN 69, cr 2.8 Code status D/W patient and daughter Oralia (her DPOA) - at this time she requests full resuscitation. In addition, she is not opposed to dialysis -- daughter asked to hold off on PICC line until we check with Dr. Ramsey. 12/24/17 Continue with Vancomycin for MRSA coverage. Will stop ceftriaxone and initiate doxycycline for coverage as WBC slow to decrease. Initiate Culturelle 1 to TIDWM to help bowel function. Sugars with elevations - needing ISS. Will increase Levemir from 7 to 8 units. 12/25/17 WBC still elevated at 21.3 and had fever of 101.3 last night. Abx were adjusted yesterday; Rocephin dc'd and doxy started. Continues on vancomycin. Weight trending up ~2 kg. CXR reviewed - mild pulmonary edema, along with conversational dyspnea and wheezing -- will give IV Lasix 20 mg x1. Renal status steady with BUN 71, cr 2.9. D/w Dr. Blas, diamond sander for Dr. Ramsey -- usually EJ or IJ is preferable to PICC if longer-term IV abx are needed. Fasting BGM was 222 this am -- increase Levemir to 10U. Continue SSI. 12/26/17 WBC still elevated at 20.5, afebrile overnight. Abx were adjusted 12/24/17; Rocephin dc'd and doxy started. Continues on vanc for MRSA bacteremia. Check Procalcitonin trending up 0.98 to 1.25. Will get transthoracic echo to evaluate EF and start to evaluate heart valves. May benefit from AXEL if infection not clearing. Still appears volume up - will start IV Lasix and monitor creatinine closely. Renal status steady with BUN 71, cr 2.9. Fasting BGM improved this morning after increasing Levemir to 10 units. Continue SSI. 12/27/17 + MRSA bacteremia- continue Vanco. Concern on exam that she may have a loculated effusion- will check CT in AM. CKD, baseline 2.7- continue IV Lasix as she remains quite edematous. Echo is pending. Weight continues to trend up. Could consider lymphedema wraps. Ongoing anemia- monitor. Left LE wound is nearly resolved. Glucose has not been documented- confirmed order is in place. will reorder. Continue SCDs. 12/28/17 Continue with vancomycin for MRSA treatment. WBC trending down. Change IV furosemide to 20mg IV 0800 and 1500 - will give just 1 dose today as creatinine with increase to 3.4. Bowels feel slow for patient - will start routine Miralax daily with prn Dulcolax suppositories. Sugars still with some elevations - will increase Levemir to 11 units in am. Continue wound care. Encourage activities for strengthening. CT chest and ECHO pending. 12/29/[address] showing pleural effusions. Creatinine with slight increase to 3.5. Will stop IV furosemide. Continue vancomycin - would change to doxycycline in outpatient setting. Sugars stable - continue insulin regimen. Encourage continued activities to help strength. CM has mad arrangements for skilled care at [place]. Possible able to discharge tomorrow if going well. 12/30/17 WBC with slight increase to 12.5. Creatinine 3.3. Weight stable. O2 saturations 94-96% on 1L. With increase of WBC will hold on discharge and continue treatment. Continue vancomycin. Can restart home furosemide of 20mg daily. Encourage continued activities to help strength. [place] paperwork filled out for daughter.
[2017-12-30] MEDS ORDERED: FALL RISK - PHARMACY CONSULT MC ONE (22:53)
[2017-12-31] MEDS: HEPARIN SUB-Q 5,000units/0.5ml INJECTION SQ SCH ×3 (00:08→17:10)
[2017-12-31] MEDS: INSULIN ASPART 100unit/ml INJECTION SQ PRN ×4 (06:54→21:07)
[2017-12-31] MEDS: NOZIN NASAL SWAB NAS SCH ×3 (06:55→21:07)
[2017-12-31] MEDS: INSULIN DETEMIR 100unit/ml INJECTION SQ SCH (09:30)
[2017-12-31] MEDS: ACETAMINOPHEN 500 MG TABLET PO SCH ×4 (09:31→21:06)
[2017-12-31] MEDS: LACTOBACILLUS (15B cfu) CAPSULE PO SCH ×3 (09:32→17:10)
[2017-12-31] MEDS: LABETALOL 100 MG TABLET PO SCH ×2 (09:32→21:06)
[2017-12-31] MEDS: MULTI-VITAMIN + MINERAL TABLET PO SCH (09:32)
[2017-12-31] MEDS: RANITIDINE 150 MG TABLET PO SCH ×2 (09:32→21:06)
[2017-12-31] MEDS: CALCIUM 500 + VIT D 200 TABLET PO SCH (09:32)
[2017-12-31] MEDS: POLYETHYL GLYCOL 3350 17gm PACKET PO SCH (09:33)
--- NOTE | 2017-12-31 13:37 | Pharmacy Consult-Antibiotics ---
Pharmacy Consult-Vancomycin - Laboratory Information WBC 12.9 T/MM3 (4.5-11.0) H 12/31/17 11:14 BUN 93.0 MG/DL (7-17) H* 12/31/17 11:14 Creatinine 3.5 mg/dL (0.7-1.2) H D 12/31/17 11:14 Procalcitonin 1.25 NG/ML 12/26/17 04:06 Vancomycin Trough 22.73 ug/mL (15-20) H* 12/30/17 23:40 - Consult Information VANCOMYCIN CONSULT: Vancomycin random = 22.57 mcg/ml. Today's SCr = 3.5 mg/dl. Will hold vancomycin for now. Serum vancomycin levels are not clearing as well as expected. Run vancomycin random level in a.m. Will continue to monitor and make adjustments accordingly. Thank you.
--- NOTE | 2017-12-31 15:04 | Progress Note ---
- Date 12/31/17 Subjective: F/U: Staph bacteremia - MRSA, Sepsis, Pneumonia Doing well this afternoon - a A little tired but feels like improving. Legs weak , making activities challenging. No leg cramps or spasm. Breathing doing well- not congested or SOA. No pain with breathing. Appetite stable. No ab pain or nausea. Objective Vital signs: Temperature 97.4 F 12/31/17 11:52 Pulse Rate 79 12/31/17 11:52 Respiratory Rate 20 12/31/17 11:52 Blood Pressure 159/81 H 12/31/17 11:52 Pulse Oximetry 95 12/31/17 11:52 Height/Weight/BMI: Height 1.68 m Weight 84.4 kg Body Mass Index 29.5 - Constitutional Present: well nourished, well developed, cooperative - Routine HEENT Exam Head: Present: normocephalic, atraumatic Eye: Present: EOMI, PERRL, normal accommodation - Routine Respiratory Exam Present: decreased breath sounds (Mild basilar blunting). Absent: rales, respiratory distress, rhonchi, stridor, wheezes, crackles - Routine Cardiovascular Exam Present: RRR, no murmur - Routine Abdominal Exam Present: soft, normoactive bowel sounds, non distended, non tender. Absent: guarding - Routine Extremities Exam Present: edema (+2 BLE ). Absent: cyanosis, clubbing - Routine Musculoskeletal Exam Musculoskeletal: Present: no clubbing or cyanosis - Routine Skin Exam Present: dry, warm - Routine Neurological Exam Present: alert, oriented X3, CN II-XII intact, moving all extremities, vision grossly intact, hearing grossly intact, normal speech. Absent: motor deficit, altered mental status - Routine Psychiatric Exam Present: normal affect, normal thought process, cooperative. Absent: anxious, agitated Results - Labs CBC & Chem 7: 12/31/17 11:14 12/31/17 11:14 Microbiology Results: Microbiology 12/23/17 04:14 Peripheral/Iv Start Blood Culture - Final No Growth After 5 Days 12/23/17 04:13 Peripheral/Iv Start Blood Culture - Final No Growth After 5 Days 12/21/17 16:17 Peripheral/Iv Start Gram Stain - Final 12/21/17 16:17 Peripheral/Iv Start Blood Culture - Final Staphylococcus aureus, MRSA 12/21/17 16:20 Peripheral/Iv Start Gram Stain - Final 12/21/17 16:20 Peripheral/Iv Start Blood Culture - Final Staphylococcus aureus, MRSA Assessment and Plan (1) MRSA bacteremia Current visit: Yes Status: Acute Assessment and Plan: Assessment Staph bacteremia - MRSA Sepsis as indicated by leukocytosis, tachycardia, fever. Left lower lobe pneumonia, POA. Left lower extremity cellulitis with open wound, acute. Leukocytosis Chronic kidney disease, stage IV - baseline SCr 2.7 - sees Dr. Ramsey. Hypertension. Diabetes mellitus, type 2 insulin dependent. Chronic anemia with iron deficiency - recent iron transfusion. Bilateral peripheral edema - baseline weight 180 lbs. Plan Clinically improving. Breathing well on RA. Strength and abilities slow to improve, but less tired in general. WBC still show slight elevation at 12.9. Creatinine 2.5. Will continue care and treatment - do feel close to discharge to skilled. Will recheck CBC in am due to leukocytosis and resolving sepsis. Recheck BMP in am secondary to renal status. Case discussed with patient's daughter and CM. Time spent with patient care 25 minutes. DVT Prophylaxis: SCD's Resuscitation Status: Full Code - Time spent with patient Time with patient PN: 25 minutes - Physician Narrative Physician: Prosper Elmore MD Narrative: Date: 12/31/17 Time: 5586 Hospital Course Summary Disclaimer: The visit summary below is not to be considered part of the above Progress Note. Hospital Course: 12/21/17 Admit to inpatient status under the care of Dr. Elmore for sepsis secondary to pneumonia. Cellulitis with open wound noted to left posterior leg. Will consult wound care for treatment recommendations. Rocephin 1g IV was given in ED for empiric treatment of both pneumonia and cellulitis. Will continue Rocephin 1g IV daily. Blood cultures pending. Initial lactate 1.1. Continue home medications. Monitor closely on telemetry. Oxygen as needed to maintain SAO2 >90%. Does not use oxygen at home. Family requested gentle fluid resuscitation given chronic renal disease and risk for edema. 1L NS given in ED. Monitor weight closely. Base line weight 180 lbs. Awaiting urine for further evaluation of possible UTI per family concern. Patient denies dysuria or urinary symptoms but has history of UTI and takes Keflex once daily for suppression therapy. Upon discharge, patient's care will be returned to her PCP, Gela Turcios APRN. 12/22/17 Continue with ceftriaxone and azithromycin for antimicrobial coverage. Discontinue IVF as oral drive stable. Will restart nifedipine as blood pressure elevated, will restart furosemide tomorrow. PT/OT to help improve functional status. 12/23/17 Antibiotics changed yesterday with pos BC with staph (95% likelihood MRSA). Zithromax dc'd. Vanco started per pharm protocol. Cont Rocephin for pulm. WBC increased slightly to 23.2. Repeated BC this am. BP elevated - nifedipine resumed yesterday. Furosemide started this am. Renal function approaching baseline - BUN 69, cr 2.8 Code status D/W patient and daughter Oralia (her DPOA) - at this time she requests full resuscitation. In addition, she is not opposed to dialysis -- daughter asked to hold off on PICC line until we check with Dr. Ramsey. 12/24/17 Continue with Vancomycin for MRSA coverage. Will stop ceftriaxone and initiate doxycycline for coverage as WBC slow to decrease. Initiate Culturelle 1 to TIDWM to help bowel function. Sugars with elevations - needing ISS. Will increase Levemir from 7 to 8 units. 12/25/17 WBC still elevated at 21.3 and had fever of 101.3 last night. Abx were adjusted yesterday; Rocephin dc'd and doxy started. Continues on vancomycin. Weight trending up ~2 kg. CXR reviewed - mild pulmonary edema, along with conversational dyspnea and wheezing -- will give IV Lasix 20 mg x1. Renal status steady with BUN 71, cr 2.9. D/w Dr. Blas, cash control specialist for Dr. Ramsey -- usually EJ or IJ is preferable to PICC if longer-term IV abx are needed. Fasting BGM was 222 this am -- increase Levemir to 10U. Continue SSI. 12/26/17 WBC still elevated at 20.5, afebrile overnight. Abx were adjusted 12/24/17; Rocephin dc'd and doxy started. Continues on vanc for MRSA bacteremia. Check Procalcitonin trending up 0.98 to 1.25. Will get transthoracic echo to evaluate EF and start to evaluate heart valves. May benefit from AXEL if infection not clearing. Still appears volume up - will start IV Lasix and monitor creatinine closely. Renal status steady with BUN 71, cr 2.9. Fasting BGM improved this morning after increasing Levemir to 10 units. Continue SSI. 12/27/17 + MRSA bacteremia- continue Vanco. Concern on exam that she may have a loculated effusion- will check CT in AM. CKD, baseline 2.7- continue IV Lasix as she remains quite edematous. Echo is pending. Weight continues to trend up. Could consider lymphedema wraps. Ongoing anemia- monitor. Left LE wound is nearly resolved. Glucose has not been documented- confirmed order is in place. will reorder. Continue SCDs. 12/28/17 Continue with vancomycin for MRSA treatment. WBC trending down. Change IV furosemide to 20mg IV 0800 and 1500 - will give just 1 dose today as creatinine with increase to 3.4. Bowels feel slow for patient - will start routine Miralax daily with prn Dulcolax suppositories. Sugars still with some elevations - will increase Levemir to 11 units in am. Continue wound care. Encourage activities for strengthening. CT chest and ECHO pending. 12/29/[address] showing pleural effusions. Creatinine with slight increase to 3.5. Will stop IV furosemide. Continue vancomycin - would change to doxycycline in outpatient setting. Sugars stable - continue insulin regimen. Encourage continued activities to help strength. CM has mad arrangements for skilled care at [place]. Possible able to discharge tomorrow if going well. 12/30/17 WBC with slight increase to 12.5. Creatinine 3.3. Weight stable. O2 saturations 94-96% on 1L. With increase of WBC will hold on discharge and continue treatment. Continue vancomycin. Can restart home furosemide of 20mg daily. Encourage continued activities to help strength. [facility] paperwork filled out for daughter. 12/31/17 Clinically improving. Breathing well on RA. Strength and abilities slow to improve, but less tired in general. WBC still show slight elevation at 12.9. Creatinine 2.5. Will continue care and treatment - do feel close to discharge to skilled.
[2017-12-31] MEDS: SALINE FLUSH 10ml SYRINGE IVF PRN (21:10)
[2018-01-01] MEDS: HEPARIN SUB-Q 5,000units/0.5ml INJECTION SQ SCH ×2 (02:13→08:15)
[2018-01-01] MEDS: NOZIN NASAL SWAB NAS SCH (06:30)
[2018-01-01] MEDS: POLYETHYL GLYCOL 3350 17gm PACKET PO SCH ×2 (08:14→08:24)
[2018-01-01] MEDS: LABETALOL 100 MG TABLET PO SCH (08:15)
[2018-01-01] MEDS: LACTOBACILLUS (15B cfu) CAPSULE PO SCH ×2 (08:15→11:16)
[2018-01-01] MEDS: RANITIDINE 150 MG TABLET PO SCH (08:15)
[2018-01-01] MEDS: ACETAMINOPHEN 500 MG TABLET PO SCH ×2 (08:15→11:17)
[2018-01-01] MEDS: MULTI-VITAMIN + MINERAL TABLET PO SCH (08:15)
[2018-01-01] MEDS: CALCIUM 500 + VIT D 200 TABLET PO SCH (08:15)
[2018-01-01] MEDS: INSULIN DETEMIR 100unit/ml INJECTION SQ SCH (08:23)
--- NOTE | 2018-01-01 10:05 | Progress Note ---
- Date 01/01/18 Subjective: F/U: Staph bacteremia - MRSA, Sepsis, Pneumonia Doing well today. Breathing comfortably on room air. Not having chest congestion or pain with breathing. Appetite stable. No nausea or ab pain. Stools stable. Urinating well. No f/c. Objective Vital signs: Temperature 97.6 F 01/01/18 07:25 Pulse Rate 79 01/01/18 09:17 Respiratory Rate 16 01/01/18 07:25 Blood Pressure 143/67 H 01/01/18 09:17 Pulse Oximetry 95 01/01/18 07:25 Height/Weight/BMI: Height 1.68 m Weight 84 kg Body Mass Index 29.5 - Constitutional Present: well nourished, well developed, average body habitus, cooperative. Absent: combative, agitated, somnolent, obtunded - Routine HEENT Exam Head: Present: normocephalic, atraumatic Eye: Present: EOMI, PERRL, normal accommodation ENT: Present: mucous membranes moist - Routine Respiratory Exam Present: decreased breath sounds. Absent: rales, respiratory distress, rhonchi , wheezes, crackles - Routine Cardiovascular Exam Present: RRR, no murmur - Routine Abdominal Exam Present: soft, normoactive bowel sounds, non distended, non tender. Absent: guarding - Routine Extremities Exam Present: cyanosis, clubbing, edema (+2), pulses intact - Routine Musculoskeletal Exam Musculoskeletal: Present: no clubbing or cyanosis - Routine Skin Exam Present: intact, dry, warm - Routine Neurological Exam Present: alert, oriented X3, CN II-XII intact, moving all extremities, vision grossly intact, hearing grossly intact, normal speech. Absent: motor deficit, altered mental status - Routine Psychiatric Exam Present: normal affect, normal thought process, cooperative Results - Labs CBC & Chem 7: 01/01/18 04:34 01/01/18 04:34 Microbiology Results: Microbiology 12/23/17 04:14 Peripheral/Iv Start Blood Culture - Final No Growth After 5 Days 12/23/17 04:13 Peripheral/Iv Start Blood Culture - Final No Growth After 5 Days 12/21/17 16:17 Peripheral/Iv Start Gram Stain - Final 12/21/17 16:17 Peripheral/Iv Start Blood Culture - Final Staphylococcus aureus, MRSA 12/21/17 16:20 Peripheral/Iv Start Gram Stain - Final 12/21/17 16:20 Peripheral/Iv Start Blood Culture - Final Staphylococcus aureus, MRSA Assessment and Plan (1) MRSA bacteremia Current visit: Yes Status: Acute Assessment and Plan: Assessment Staph bacteremia - MRSA Sepsis as indicated by leukocytosis, tachycardia, fever. Left lower lobe pneumonia, POA. Left lower extremity cellulitis with open wound, acute. Leukocytosis Chronic kidney disease, stage IV - baseline SCr 2.7 - sees Dr. Ramsey. Hypertension. Diabetes mellitus, type 2 insulin dependent. Chronic anemia with iron deficiency - recent iron transfusion. Bilateral peripheral edema - baseline weight 180 lbs. Plan Doing well overall. Lab stable. No fevers or chills. Will discharge to skill to increase strength and functional abilities before returning home. Will continue with doxycycline 100mg BID for 5 days to complete course of antibiotics. Recheck BMP in 4 days - results to Dr Ramsey and Gela Garsia. F/U with Gela Garsia in 1 week. F/U with Dr Ramsey as scheduled. See orders for details. Case discussed with CM. Time spent with patient care and discharge greater than 30 minutes. DVT Prophylaxis: SCD's Resuscitation Status: Full Code - Physician Narrative Physician: Prosper Elmore MD Narrative: Date: 01/01/18 Time: 1001 Hospital Course Summary Disclaimer: The visit summary below is not to be considered part of the above Progress Note. Hospital Course: 12/21/17 Admit to inpatient status under the care of Dr. Elmore for sepsis secondary to pneumonia. Cellulitis with open wound noted to left posterior leg. Will consult wound care for treatment recommendations. Rocephin 1g IV was given in ED for empiric treatment of both pneumonia and cellulitis. Will continue Rocephin 1g IV daily. Blood cultures pending. Initial lactate 1.1. Continue home medications. Monitor closely on telemetry. Oxygen as needed to maintain SAO2 >90%. Does not use oxygen at home. Family requested gentle fluid resuscitation given chronic renal disease and risk for edema. 1L NS given in ED. Monitor weight closely. Base line weight 180 lbs. Awaiting urine for further evaluation of possible UTI per family concern. Patient denies dysuria or urinary symptoms but has history of UTI and takes Keflex once daily for suppression therapy. Upon discharge, patient's care will be returned to her PCP, Gela Turcios APRN. 12/22/17 Continue with ceftriaxone and azithromycin for antimicrobial coverage. Discontinue IVF as oral drive stable. Will restart nifedipine as blood pressure elevated, will restart furosemide tomorrow. PT/OT to help improve functional status. 12/23/17 Antibiotics changed yesterday with pos BC with staph (95% likelihood MRSA). Zithromax dc'd. Vanco started per pharm protocol. Cont Rocephin for pulm. WBC increased slightly to 23.2. Repeated BC this am. BP elevated - nifedipine resumed yesterday. Furosemide started this am. Renal function approaching baseline - BUN 69, cr 2.8 Code status D/W patient and daughter Oralia (her DPOA) - at this time she requests full resuscitation. In addition, she is not opposed to dialysis -- daughter asked to hold off on PICC line until we check with Dr. Ramsey. 12/24/17 Continue with Vancomycin for MRSA coverage. Will stop ceftriaxone and initiate doxycycline for coverage as WBC slow to decrease. Initiate Culturelle 1 to TIDWM to help bowel function. Sugars with elevations - needing ISS. Will increase Levemir from 7 to 8 units. 12/25/17 WBC still elevated at 21.3 and had fever of 101.3 last night. Abx were adjusted yesterday; Rocephin dc'd and doxy started. Continues on vancomycin. Weight trending up ~2 kg. CXR reviewed - mild pulmonary edema, along with conversational dyspnea and wheezing -- will give IV Lasix 20 mg x1. Renal status steady with BUN 71, cr 2.9. D/w Dr. Blas, disaster recovery consultant for Dr. Ramsey -- usually EJ or IJ is preferable to PICC if longer-term IV abx are needed. Fasting BGM was 222 this am -- increase Levemir to 10U. Continue SSI. 12/26/17 WBC still elevated at 20.5, afebrile overnight. Abx were adjusted 12/24/17; Rocephin dc'd and doxy started. Continues on vanc for MRSA bacteremia. Check Procalcitonin trending up 0.98 to 1.25. Will get transthoracic echo to evaluate EF and start to evaluate heart valves. May benefit from AXEL if infection not clearing. Still appears volume up - will start IV Lasix and monitor creatinine closely. Renal status steady with BUN 71, cr 2.9. Fasting BGM improved this morning after increasing Levemir to 10 units. Continue SSI. 12/27/17 + MRSA bacteremia- continue Vanco. Concern on exam that she may have a loculated effusion- will check CT in AM. CKD, baseline 2.7- continue IV Lasix as she remains quite edematous. Echo is pending. Weight continues to trend up. Could consider lymphedema wraps. Ongoing anemia- monitor. Left LE wound is nearly resolved. Glucose has not been documented- confirmed order is in place. will reorder. Continue SCDs. 12/28/17 Continue with vancomycin for MRSA treatment. WBC trending down. Change IV furosemide to 20mg IV 0800 and 1500 - will give just 1 dose today as creatinine with increase to 3.4. Bowels feel slow for patient - will start routine Miralax daily with prn Dulcolax suppositories. Sugars still with some elevations - will increase Levemir to 11 units in am. Continue wound care. Encourage activities for strengthening. CT chest and ECHO pending. 12/29/[address] showing pleural effusions. Creatinine with slight increase to 3.5. Will stop IV furosemide. Continue vancomycin - would change to doxycycline in outpatient setting. Sugars stable - continue insulin regimen. Encourage continued activities to help strength. CM has mad arrangements for skilled care at [place]. Possible able to discharge tomorrow if going well. 12/30/17 WBC with slight increase to 12.5. Creatinine 3.3. Weight stable. O2 saturations 94-96% on 1L. With increase of WBC will hold on discharge and continue treatment. Continue vancomycin. Can restart home furosemide of 20mg daily. Encourage continued activities to help strength. [facility] paperwork filled out for daughter. 12/31/17 Clinically improving. Breathing well on RA. Strength and abilities slow to improve, but less tired in general. WBC still show slight elevation at 12.9. Creatinine 3.5. Will continue care and treatment - do feel close to discharge to skilled. 01/01/18 Doing well overall. Lab stable. No fevers or chills. Will discharge to skill to increase strength and functional abilities before returning home. Will continue with doxycycline 100mg BID for 5 days to complete course of antibiotics. Recheck BMP in 4 days - results to Dr Ramsey and Gela K. F/U with Gela Garsia in 1 week. F/U with Dr Ramsey as scheduled. See orders for details.
--- NOTE | 2018-01-01 10:16 | Extended Care Facility Orders ---
Admission Orders Admit to:: Retirement Allergies/Adverse Reactions: Allergies No Known Drug Allergies Allergy (Unknown, Verified 12/21/17 16:00) Admitting Diagnosis: Sepsis, pneumonia Admitting Physician: Prosper Elmore MD Attending Physician: Gela Hua Code Status: Full Code Anticiapted Length of Stay: 30 days or less Rehab Potential: fair Rehab Prognosis: fair Diet: Cardiac Consistent Carbohydrate Diet [DIET] Calorie Level: 2000 Sodium Restriction: 2GRAM Fat Content: LOW Wound/Incision Care: Left Lateral Calf Abrasion. Cover with Mepilex, change q 3 days and PRN May use Facility Protocol or Standing Orders: Yes May have flu vaccine: Yes Evaluations/Treatment: PT, OT Retirement Certification: I certify that SNF services are required to be given on an Inpatient basis because of the patients need for senior living care on a continuing basis for the condition(s) for which he/she received inpatient hospital services prior to his/her transfer to the SNF. SNF inpatient care is necessary for the following reasons Indication for Retirement: Wound Care/Assessment, Med Admininistration, Teach Medication Management, Teach Diabetes Mellitus Management, Other (Skilled PT/OT to maximize functional status. senior care to monitor cardiopulmonary status.) - Additional Information In Event of Arrest: Do Not Start CPR Resident is Aware of Diagnosis: Yes Referrals: Gela Turcios APRN [Primary Care Provider] - 1 Week (Hospital f/u for sepsis /pneumonia ) Eduard Ramsey MD [Physician] - (Keep previously scheduled follow up appointment. ) Additional Orders: BAUDILIO hose to Bilateral lower ext. Encourage use of IS every 2 hours while awake. Accuchecks fasting am and 2 hours post meals. BMP on 01/05 (Dx: Stage 4 CKD) - results to Adal Turcios and Dr Eduard Ramsey.
[2018-01-01] MEDS: INSULIN ASPART 100unit/ml INJECTION SQ PRN ×2 (11:17→14:57)
[2018-01-01 13:47] VITALS: BP 172/77; PULSE 75; RESP 18; TEMP 96.1; O2SAT 97
--- NOTE | 2018-01-01 15:36 | Discharge Summary ---
Discharge Information Date of admission: 12/21/17 17:14 Anticipated date of discharge: 01/01/18 Attending Physician: Prosper Elmore MD Primary care physician: Gela Turcios APRN Consults: [facility] Consult Reason for consultation: left posterior leg wound/cellulitis - Discharge Diagnosis (1) MRSA bacteremia Status: Acute Discharge diagnosis Staph bacteremia - MRSA Sepsis as indicated by leukocytosis, tachycardia, fever. Associated conditions and complications Left lower lobe pneumonia, POA. Left lower extremity cellulitis with open wound, acute. Leukocytosis Chronic kidney disease, stage IV - baseline SCr 2.7 - sees Dr. Ramsey. Hypertension. Diabetes mellitus, type 2 insulin dependent. Chronic anemia with iron deficiency - recent iron transfusion. Bilateral peripheral edema - baseline weight 180 lbs. - Procedures Procedures: Date of Exam: 12/28/17 Type of Exam: US ECHO Doppler complete Left atrium is dilated. Left ventricular end-diastolic dimension is normal. Left ventricular wall thickness is increased. LV systolic function is normal with ejection fraction of 62%. Right atrium is normal. Right ventricle is normal. Aortic root dimension is normal. Mitral annulus is calcified. Mitral valve leaflets are normal with mild mitral regurgitation. Aortic valve shows no stenosis or insufficiency. Tricuspid valve shows mild tricuspid regurgitation with estimated pulmonary artery systolic pressure of 42. Pulmonary valve shows trace of pulmonary insufficiency. There is no pericardial effusion. IMPRESSION 1. Normal LV systolic function with ejection fraction of about 62%. 2. Concentric left ventricular hypertrophy. 3. Left atrial dilation. 4. Mitral annulus calcification with mild mitral regurgitation. 5. Mild tricuspid regurgitation with [id number] pulmonary hypertension with estimated pulmonary artery systolic pressure of 42. 6. Trace of pulmonary insufficiency. 7. Dilated inferior vena cava suggestive of elevated central venous pressure. - Laboratory Labs: Admit Lab 12/21/17 16:17 WBC 25.9 H* Hgb 9.7 L Hct 30.3 L MCV 95.3 Plt Count 181 Neutrophils % (Manual) 98.0 H Monocytes % (Manual) 2.0 Admit Lab 12/21/17 16:17 Sodium 142 Potassium 4.6 Chloride 113 H Carbon Dioxide 18 L Anion Gap 11 BUN 76.0 H* Creatinine 2.8 H GFR Calculation 16 BUN/Creatinine Ratio 27 H Glucose 208 H Calculated Osmolality 302 H Calcium 8.6 Total Bilirubin 0.40 AST 19 ALT 19 Alkaline Phosphatase 79 Total Protein 6.1 L Albumin 3.3 L Globulin 2.8 Albumin/Globulin Ratio 1.2 Plasma Lactate 1.1 01/01/18 04:34 01/01/18 04:34 - Microbiology Microbiology 12/23/17 04:14 Peripheral/Iv Start Blood Culture - Final No Growth After 5 Days 12/23/17 04:13 Peripheral/Iv Start Blood Culture - Final No Growth After 5 Days 12/21/17 16:17 Peripheral/Iv Start Gram Stain - Final 12/21/17 16:17 Peripheral/Iv Start Blood Culture - Final Staphylococcus aureus, MRSA 12/21/17 16:20 Peripheral/Iv Start Gram Stain - Final 12/21/17 16:20 Peripheral/Iv Start Blood Culture - Final Staphylococcus aureus, MRSA - Radiology Radiology: Date of Exam: 12/21/17 Type of Exam: XR chest 2V FINDINGS: Hazy left lower lobe airspace opacities are new. Mild perihilar interstitial prominence on the right as well. No pneumothorax or pleural effusion. Heart size and mediastinal contours are stable. Degenerative change in the lower thoracic and upper lumbar spine. Impression: Left lower lobe atelectasis or pneumonia. Date of Exam: 12/25/17 Type of Exam: XR chest 2V FINDINGS: Persistent left lower lobe airspace opacity with a small amount of airspace disease in the right lower lobe. Small pleural effusions are new. Upper lung tyler are clear. No pneumothorax. Heart size and mediastinal contours are stable. Pulmonary vascularity is more prominent. Impression: Persistent lower lobe infiltrates with new mild edema. Date of Exam: 12/28/17 Type of Exam: CT chest wo con FINDINGS: Lungs and Airways: No pulmonary nodule. No pulmonary mass or consolidation. No endoluminal lesion. Pleura: There are small to moderate sized bilateral pleural effusions with subjacent atelectasis and/or infiltrate in both lower lobes. Heart and Mediastinum: Both lobes of the thyroid gland appear heterogeneous with calcifications in the right lobe of the thyroid gland. The evaluation for adenopathy is limited without IV contrast but there is no obvious pathologic adenopathy in the mediastinal, hilar or axillary regions. There is no obvious supraclavicular adenopathy. Subcentimeter lymph nodes are seen in the precarinal region, AP window and prevascular space but no pathologic adenopathy is seen in the mediastinum. There is however an enlarged lymph node in the right retrocrural region that measures 3.3 cm.. The heart is mildly enlarged showing evidence for three-vessel coronary artery calcifications. There is calcification in the mitral valve annulus. There is no pericardial effusion but there appears to be a thin rim of calcification within the pericardium..The great vessels are normal caliber. There is mild scattered plaque formation along the course of the thoracic aorta. Abdomen: Limited imaging through the upper abdomen shows no obvious adrenal enlargement and the unenhanced appearance of the liver and spleen appear homogeneous. There is small volume perihepatic ascites. Calcifications are seen in the splenic artery. There is a small hiatal hernia with gaseous distention of the proximal esophagus. Bones and Soft Tissues: The osseous structures show advanced degenerative disc changes in the mildly kyphoscoliotic thoracic spine. The chest wall soft tissues show no obvious worrisome abnormalities there is calcification in the right breast soft tissues. Postsurgical changes of prior open reduction internal fixation of the right humerus is visualized. There are localized edematous changes in the left lower chest wall/left flank of uncertain etiology may may be posttraumatic in etiology. IMPRESSION: 1. The heart is enlarged. There are pericardial calcifications which can be seen with constrictive pericarditis, correlate clinically. Further evaluation with echocardiogram may be helpful. 2. Moderate size bilateral pleural effusions with subjacent atelectasis and/or infiltrate in both lower lobes. 3. Small volume perihepatic ascites. 4. Right retrocrural adenopathy which appears borderline pathologic size. Further evaluation with CT scan of the abdomen and pelvis is recommended. 5. Heterogeneous appearance of the thyroid gland with calcification in the right lobe of the thyroid gland. Sonographic assessment may be helpful. 6. Localized edematous change in the posterior left lower chest wall/left flank of uncertain etiology may may be posttraumatic in etiology or secondary to cellulitis. Recommend clinical correlation and follow-up as indicated. History of Present Illness HPI: Brooklyn Gray is a pleasant 87-year-old female patient of Gela Turcios APRN who was brought in to [facility] ED today, 12/21/17, by her daughters for evaluation of increased fatigue and weakness. She reports increased fatigue and generalized weakness as well as chills since last evening that progressively got worse today. She denies any chest pain, shortness of breath, palpitations, fevers, abdominal pain, nausea, vomiting, dysuria or diarrhea. After ambulating to the bathroom with her walker, she didn't have the strength to walk back to her chair so her daughter assisted her to the floor and contacted EMS. She was brought to [facility] ED for further evaluation. Upon arrival, she was noted to be febrile (101.8) and tachycardic. Labs revealed leukocytosis (WBC 25.9) with anemia (hgb 9.7). She has known chronic kidney disease, stage IV and recently was seen by Dr. Ramsey, nephrology. Baseline SCr ~2.7. Lactate was 1.1. Chest x-ray revealed left lower lobe pneumonia vs. atelectasis. Due to her apparent sepsis secondary to pneumonia, Dr. Elmore was consulted and she was admitted into inpatient status for further evaluation, IV antibiotics and IV hydration. She was given Rocephin 1g IV with 1L NS prior to admission. For complete details of the H&P refer to that document. Objective Vital signs: Temperature 96.1 F L 01/01/18 13:00 Pulse Rate 75 01/01/18 13:00 Respiratory Rate 18 01/01/18 13:00 Blood Pressure 172/77 H 01/01/18 13:00 Pulse Oximetry 97 01/01/18 13:00 Height/Weight/BMI: Height 1.68 m Weight 84 kg Body Mass Index 29.5 Hospital Course This is a general summary of the patient's hospital course. For more details refer to the complete medical record. Hospital course: 12/21/17 Admit to inpatient status under the care of Dr. Elmore for sepsis secondary to pneumonia. Cellulitis with open wound noted to left posterior leg. Will consult wound care for treatment recommendations. Rocephin 1g IV was given in ED for empiric treatment of both pneumonia and cellulitis. Will continue Rocephin 1g IV daily. Blood cultures pending. Initial lactate 1.1. Continue home medications. Monitor closely on telemetry. Oxygen as needed to maintain SAO2 >90%. Does not use oxygen at home. Family requested gentle fluid resuscitation given chronic renal disease and risk for edema. 1L NS given in ED. Monitor weight closely. Base line weight 180 lbs. Awaiting urine for further evaluation of possible UTI per family concern. Patient denies dysuria or urinary symptoms but has history of UTI and takes Keflex once daily for suppression therapy. Upon discharge, patient's care will be returned to her PCP, Gela Turcios, OSTEOPATHIC RESIDENT. 12/22/17 Continue with ceftriaxone and azithromycin for antimicrobial coverage. Discontinue IVF as oral drive stable. Will restart nifedipine as blood pressure elevated, will restart furosemide tomorrow. PT/OT to help improve functional status. 12/23/17 Antibiotics changed yesterday with pos BC with staph (95% likelihood MRSA). Zithromax dc'd. Vanco started per pharm protocol. Cont Rocephin for pulm. WBC increased slightly to 23.2. Repeated BC this am. BP elevated - nifedipine resumed yesterday. Furosemide started this am. Renal function approaching baseline - BUN 69, cr 2.8 Code status D/W patient and daughter Oralia (her DPOA) - at this time she requests full resuscitation. In addition, she is not opposed to dialysis -- daughter asked to hold off on PICC line until we check with Dr. Ramsey. 12/24/17 Continue with Vancomycin for MRSA coverage. Will stop ceftriaxone and initiate doxycycline for coverage as WBC slow to decrease. Initiate Culturelle 1 to TIDWM to help bowel function. Sugars with elevations - needing ISS. Will increase Levemir from 7 to 8 units. 12/25/17 WBC still elevated at 21.3 and had fever of 101.3 last night. Abx were adjusted yesterday; Rocephin dc'd and doxy started. Continues on vancomycin. Weight trending up ~2 kg. CXR reviewed - mild pulmonary edema, along with conversational dyspnea and wheezing -- will give IV Lasix 20 mg x1. Renal status steady with BUN 71, cr 2.9. D/w Dr. Blas, information technology account manager for Dr. Ramsey -- usually EJ or IJ is preferable to PICC if longer-term IV abx are needed. Fasting BGM was 222 this am -- increase Levemir to 10U. Continue SSI. 12/26/17 WBC still elevated at 20.5, afebrile overnight. Abx were adjusted 12/24/17; Rocephin dc'd and doxy started. Continues on vanc for MRSA bacteremia. Check Procalcitonin trending up 0.98 to 1.25. Will get transthoracic echo to evaluate EF and start to evaluate heart valves. May benefit from AXEL if infection not clearing. Still appears volume up - will start IV Lasix and monitor creatinine closely. Renal status steady with BUN 71, cr 2.9. Fasting BGM improved this morning after increasing Levemir to 10 units. Continue SSI. 12/27/17 + MRSA bacteremia- continue Vanco. Concern on exam that she may have a loculated effusion- will check CT in AM. CKD, baseline 2.7- continue IV Lasix as she remains quite edematous. Echo is pending. Weight continues to trend up. Could consider lymphedema wraps. Ongoing anemia- monitor. Left LE wound is nearly resolved. Glucose has not been documented- confirmed order is in place. will reorder. Continue SCDs. 12/28/17 Continue with vancomycin for MRSA treatment. WBC trending down. Change IV furosemide to 20mg IV 0800 and 1500 - will give just 1 dose today as creatinine with increase to 3.4. Bowels feel slow for patient - will start routine Miralax daily with prn Dulcolax suppositories. Sugars still with some elevations - will increase Levemir to 11 units in am. Continue wound care. Encourage activities for strengthening. CT chest and ECHO pending. 12/29/[address] showing pleural effusions. Creatinine with slight increase to 3.5. Will stop IV furosemide. Continue vancomycin - would change to doxycycline in outpatient setting. Sugars stable - continue insulin regimen. Encourage continued activities to help strength. CM has mad arrangements for skilled care at [facility]. Possible able to discharge tomorrow if going well. 12/30/17 WBC with slight increase to 12.5. Creatinine 3.3. Weight stable. O2 saturations 94-96% on 1L. With increase of WBC will hold on discharge and continue treatment. Continue vancomycin. Can restart home furosemide of 20mg daily. Encourage continued activities to help strength. FMLA paperwork filled out for daughter. 12/31/17 Clinically improving. Breathing well on RA. Strength and abilities slow to improve, but less tired in general. WBC still show slight elevation at 12.9. Creatinine 3.5. Will continue care and treatment - do feel close to discharge to [facility]. 01/01/18 Doing well overall. Lab stable. No fevers or chills. Will discharge to skill to increase strength and functional abilities before returning home. Will continue with doxycycline 100mg BID for 5 days to complete course of antibiotics. Recheck BMP in 4 days - results to Dr Ramsey and Gela Garsia. F/U with Gela Garsia in 1 week. F/U with Dr Ramsey as scheduled. See orders for details. Time spent with patient: discharge greater than 30 minutes Resuscitation Status: Full Code Discharge Plan - Discharge Disposition Discharge Date: 01/01/18 Disposition: [address] [facility] (SNF) *Condition: Stable Reason For Visit (Visit label in EMR): sepsis, pneumonia - Discharge Medications *Discharge Medications: New Acetaminophen [Tylenol] 500 mg PO 08,12,17,21 tab Acidoph/L.bulg/Bif.b/S.thermop [Bacid Caplet] 2 cap PO TIDWM tab CALCIUM CARBONATE Chewable [Tums] 1,000 mg PO PRN PRN tab.chew PRN Reason: Dyspepsia Doxycycline [Vibramycin] 100 mg PO BID #10 tab Insulin Detemir [Levemir] 11 unit SQ AMI vial Ranitidine [Zantac] 75 mg PO BID tab Continue Mv-Mn/Folic Acid/Calcium/Vit K [Women's 50 Plus Daily Formula] 1 tab PO DAILY NIFEdipine [Nifedipine ER] 90 mg PO DAILY Furosemide [Lasix 20 mg Tab] 20 mg PO DAILY Calcium Carbonate/Vitamin D3 [Calcium 600-Vit D3 800 Caplet] 1 tab PO DAILY Labetalol [Normodyne] 100 mg PO BID Discontinued Insulin Detemir [Levemir] 7 unit SQ AMI cephALEXin [Cephalexin] 500 mg PO DAILY Acetaminophen [Acetaminophen Extra Strength] 1,000 mg PO QID - Discharge Packet/Instructions *Diet: No added salt, no concentrated sweets *Activity: Increase as able, walker for assistance. *Pain Management/Treatment: Tylenol. *Wound Care: Left Lateral Calf Abrasion. Cover with Mepilex, change q 3 days and PRN Additional Instructions: Use IS every 2 hours while awake. *Expected Signs/Symptoms: Improvement of strength and functional status. *Notify Physician if: Temp > 100.4. Increasing shortness of breath or pain with breathing. *During Business Hours Contact: Nursing staff at [facility] *After Business Hours Contact: Nursing staff at [facility] *Pending Lab/Results: No Pending Lab - Referrals/Follow Up *Referrals/Follow Up: Gela Turcios APRN [Primary Care Provider] - 1 Week (Hospital f/u for sepsis /pneumonia ) Eduard Ramsey MD [Physician] - (Keep previously scheduled follow up appointment. ) - Patient Handouts Patient Handouts: Sepsis (GEN), Pneumonia (GEN) - Dismissal Complete Discharge Instructions are:: Complete Physician Narrative - Narrative Physician: Prosper Elmore MD Attestation Narrative: Date: 01/01/18 Time: 9060 I have independently interviewed and examined patient prior to discharge. See my progress note for details. Medically stable for discharge to skilled.
== END 2018-01-01 15:20 | DRG 871 ==
LOC: ED 15:55 → SUATTDRO 17:14 → EDHOLD 17:14 → MED 18:10
PROVIDERS: ADMIT Hospitalist; ATTEND Hospitalist